=== PATIENT | female | born 2000 | race Native Hawaiian/Other Pacific Islander ===

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

== ENCOUNTER 2022-09-14 22:26 | Emergency (ER) | payer OTHER, SELFPAY ==
--- NOTE | 2022-09-14 | ECG_ITS ---
Test Reason : chest pain Blood Pressure : / mmHG Vent. Rate : 092 BPM Atrial Rate : 092 BPM P-R Int : 154 ms QRS Dur : 076 ms QT Int : 372 ms P-R-T Axes : 053 050 039 degrees QTc Int : 460 ms Normal sinus rhythm Normal ECG When compared with ECG of 05-FEB-2019 15:46, No significant change was found Referred By: Generic ED Physician Electronically Signed By:ELIECER GARCIA MD
--- NOTE | ~2022-09-14 | XR_ITS ---
EXAMINATION: XR CHEST CLINICAL INFORMATION: Shortness of breath. COMPARISON: Chest x-ray 02/05/2019 TECHNIQUE: 2 views of the chest were obtained. FINDINGS: No significant abnormality is noted involving the heart, lungs, mediastinum, bony thorax or soft tissues. XR/XR chest 2V IMPRESSION: Unremarkable examination.
[2022-09-14 22:39] VITALS: BP 102/62; PULSE 86; RESP 20; TEMP 36.6; O2SAT 99; BMI 26.4
[2022-09-14 22:54] LABS: Hematocrit 34.8 % (37.0-47.0); Hemoglobin 11.9 g/dl (12.0-16.0); Mean Corpuscular HGB Conc 34.2 g/dl (31.0-35.0); Mean Corpuscular Hemoglobin 30.7 pg (27.0-33.0); Mean Corpuscular Volume 89.7 fL (80.0-98.0); Mean Platelet Volume 11.3 fL (9.4-12.3); Platelet Count 238 X10*3/uL (160-400); Red Blood Count 3.88 X10*6/uL (4.20-5.50); Red Cell Distribution Width 12.5 % (11.0-16.0); White Blood Count 9.5 X10*3/uL (4.8-10.8)
[2022-09-14 23:12] LABS: Alanine Aminotransferase 23 U/L (0-31); Albumin Level 3.7 g/dL (3.5-5.0); Alkaline Phosphatase 83 U/L (39-117); Anion Gap 11 (12-20); Aspartate Amino Transferase 21 U/L (5-31); Bilirubin Total 0.2 mg/dL (0.0-1.0); Blood Urea Nitrogen 14 mg/dL (9-16); Calcium 9.2 mg/dL (8.4-10.2); Carbon Dioxide 24 mmol/L (22-29); Chloride 108 mmol/L (96-108); Creatinine Clr Calc Pharmacy 120.7; Estimated Glomerular Filt Rate > 60; Glucose Random 82 mg/dL (60-115); Potassium 4.1 mmol/L (3.3-5.1); Sodium 139 mmol/L (135-145); Total Protein 6.3 g/dL (6.5-8.0)
[2022-09-14 23:13] LABS: COVID-19 Test Negative (Negative); IDNOW Serial# 9DB6401D
[2022-09-14 23:15] LABS: IDNOW Serial# BCCEAD1C; Influenza A Negative (Negative); Influenza B2 Negative (Negative)
[2022-09-14 23:19] LABS: Troponin-I High Sensitivity < 2.7 ng/L (<3.5-17.0)
[2022-09-14 23:40] VITALS: BP 99/55; PULSE 70; RESP 17; TEMP 36.8; O2SAT 99
--- NOTE | 2022-09-14 23:40 | ED_ITS ---
HPI - General Adult General Chief complaint: General Medical Stated complaint: bodyaches,chest pain hx of lupus Time Seen by Provider: 09/14/22 23:39 Source: patient Mode of arrival: ambulatory Limitations: no limitations History of Present Illness HPI narrative: Patient is a 21 year old assigned female at with a history of lupus presenting to the emergency department today feeling generally unwell with body aches. Patient states that today she has felt generally unwell with body aches. Patient denies any current dizziness, lightheadedness, abdominal pain, nausea, vomiting, fever, chills, blurry vision, double vision, loss of vision, chest pain, difficulty breathing, shortness of breath, back pain, night sweats, pain with urination, increased urinary frequency, increased urinary urgency, blood in her urine or stool, syncope or a near syncopal episode, recent trauma or falls, bowel incontinence, bladder incontinence, bowel retention, bladder retention, or any other complaints at this time. Onset (ago): hour(s) Severity: mild Relieving factors: none Exacerbating factors: none Associated symptoms: denies other symptoms Treatments prior to arrival: none Related Data Previous Rx's Medication Instructions Recorded prednisone 20 mg tablet 20 mg PO DAILY 7 days #7 tabs 09/14/22 Allergies Allergy/AdvReac Type Severity Reaction Status Date / Time No Known Allergies Allergy Unverified 02/17/20 17:18 [No Known Allergies*] Review of Systems Constitutional: Constitutional: Reports no additional constitutional complaints, Reports body ache(s), Denies chills, Denies fever(s) and Denies night sweats Eyes: Eyes: Reports no additional eye complaints, Denies blurry vision, Denies change in vision, Denies diplopia, Denies eye discharge, Denies loss of vision and Denies eye pain ENT: Denies dizziness Cardiovascular: Cardiovascular: Reports no additional cardiovascular complaints, Denies chest pain, Denies lightheadedness, Denies Loss of Consciousness and Denies dyspnea Respiratory: Respiratory: Reports no additional respiratory complaints and Denies dyspnea Gastrointestinal: Gastrointestinal: Reports no additional gastrointestinal complaints, Denies abdominal pain, Denies melena, Denies hematochezia, Denies change in bowel habits and Denies change in stool character Genitourinary: Genitourinary: Denies hematuria, Denies urinary frequency, Denies dysuria, Denies urinary incontinence, Denies urinary hesitancy and Denies urinary urgency Musculoskeletal: Musculoskeletal: Reports no additional musculoskeletal complaints, Denies numbness and Denies tingling Neurologic: Denies dizziness, Denies loss of vision, Denies numbness and Denies tingling Psychiatric: Psychiatric: Reports no additional psychiatric complaints Endocrine: Endocrine: Reports no additional endocrine complaints Hematologic/Lymphatic: Hematologic/Lymphatic: Reports no additional hematologic/lymphatic complaints Allergic/Immunologic: Allergic/Immunologic: Reports no additional allergic/immunologic complaints PMFSH Past Medical History Attestation statement: The following information was validated with the patient. (all information was validated with the patient's mother) Source: old records reviewed, obtained from family (patient's mother) and nursing notes reviewed Social History Social History Advance Directives: No Advance Directives Information Provided: Yes Physical Exam ED Vital Signs: Vital Signs - 24 hr 09/14/22 22:39 09/14/22 23:40 Temperature 98 F 98.3 F Pulse Rate 86 70 Respiratory Rate 20 17 Blood Pressure 102/62 99/55 L Pulse Oximetry 99 99 Oxygen Delivery Method Room Air Room Air BMI result Body Mass Index 26.4 Const General: cooperative, no acute distress, alert and awake Nutritional Appearance: well nourished Orientation/consciousness: patient oriented x3 Limitations: no limitations HENMT Head: Yes normal to inspection and Yes atraumatic Ears: hearing grossly normal bilaterally and external ears normal General nose exam: Normal external nose present, no nasal discharge noted and no epistaxis Face and sinus: Yes normal facial exam, No abrasion and No laceration Mouth: Normal oral and palatal mucosa present, no drooling and no muffled voice Eyes General: appearance normal, both eyes and all related structures Periorbital: periorbital findings normal Eyelids: Yes eyelids normal Conjunctivae: conjunctivae normal Pupils: Equal, round and reactive pupils present EOM: EOMs intact bilaterally Neck Neck: Yes normal visual inspection, Yes full ROM and Yes no lymphadenopathy Chest Chest palpation & inspection: normal inspection of the chest Resp Effort & Inspection: normal respiratory effort and able to speak in complete sentences Auscultation: clear to auscultation bilaterally Cardio Rate: regular rate Rhythm: regular rhythm GI Inspection: Yes normal to inspection Neuro General: patient oriented x3 and moves all extremities Cranial nerves: Yes Equal, round and reactive pupils present Cognition (Neuro): normal cognition Motor exam (neuro): 5/5 motor strength present throughout Sensory Exam: Normal double simultaneous stimulation for sensation Coordination: [id number] test normal Extrem General: Yes normal to inspection, Yes full ROM and Yes capillary refill normal Psych Appearance: grossly normal Mental Status: mental status grossly normal Affect: normal affect Attitude: cooperative Thought process: Normal thought process present Thought content: Normal thought content present Insight: Good insight present (Psych) Medical Decision Making Medical Decision Making MDM Narrative: Patient is a 21 year old assigned female at with a history of lupus presenting to the emergency department today feeling generally unwell. Patient's physical exam was unremarkable. Patient's blood work was unremarkable. Patient's EKG was unremarkable. Patient's chest x-ray showed no acute process. I explained my physical exam findings as well as all test results to the patient and the patient's mother. I answered all questions asked by the patient and the patient's mother. I stressed the importance of the patient taking her medication as prescribed. I stressed the importance of the patient following up with her primary care provider. I stressed the importance of the patient returning to the emergency department immediately if her symptoms were to worsen or if she were to develop any dizziness, shortness of breath, difficulty breathing, chest pain, blurry vision, loss of vision, nausea, vomiting, abdominal pain, fever, chills, back pain, or any other complaints. Patient and the patient's mother verbalized agreement and understanding with this treatment plan and discharge. Differential Diagnosis Differential Diagnoses: The differential diagnosis associated with the presentation includes viral illness Lab Data [facility] Lab Attestation statement: I reviewed the patient's lab results. 09/14/22 22:47 09/14/22 22:46 Labs: Lab Results 09/14/22 09/14/22 09/14/22 Range/Units 22:46 22:46 22:46 WBC (4.8-10.8) X10*3/uL RBC (4.20-5.50) X10*6/uL Hgb (12.0-16.0) g/dl Hct (37.0-47.0) % MCV (80.0-98.0) fL MCH (27.0-33.0) pg MCHC (31.0-35.0) g/dl RDW (11.0-16.0) % Plt Count (160-400) X10*3/uL MPV (9.4-12.3) fL Absolute Nucleated RBC (0.0-0.012) X10*3/uL Nucleated RBC % (auto) (0.0-0.2) /100WBC Sodium 139 (135-145) mmol/L Potassium 4.1 (3.3-5.1) mmol/L Chloride 108 (96-108) mmol/L Carbon Dioxide 24 (22-29) mmol/L Anion Gap 11 L (12-20) BUN 14 (9-16) mg/dL Creatinine 0.64 (0.5-1.4) mg/dL Estim Creat Clear Calc 120.7 Estimated GFR > 60 Random Glucose 82 (60-115) mg/dL Calcium 9.2 D (8.4-10.2) mg/dL Total Bilirubin 0.2 (0.0-1.0) mg/dL AST 21 (5-31) U/L ALT 23 (0-31) U/L Alkaline Phosphatase 83 (39-117) U/L Troponin I High Sens (<3.5-17.0) ng/L Total Protein 6.3 L (6.5-8.0) g/dL Albumin 3.7 (3.5-5.0) g/dL COVID-19 (YVON) Negative (Negative) COVID-19 Clin Com See Note Influenza Type A (MELY) Negative (Negative) Influenza Type B (MELY) Negative (Negative) Influenza A & B Note See Note 09/14/22 09/14/22 Range/Units 22:46 22:47 WBC 9.5 (4.8-10.8) X10*3/uL RBC 3.88 L (4.20-5.50) X10*6/uL Hgb 11.9 L (12.0-16.0) g/dl Hct 34.8 L (37.0-47.0) % MCV 89.7 (80.0-98.0) fL MCH 30.7 (27.0-33.0) pg MCHC 34.2 (31.0-35.0) g/dl RDW 12.5 (11.0-16.0) % Plt Count 238 (160-400) X10*3/uL MPV 11.3 (9.4-12.3) fL Absolute Nucleated RBC 0.000 (0.0-0.012) X10*3/uL Nucleated RBC % (auto) 0.0 (0.0-0.2) /100WBC Sodium (135-145) mmol/L Potassium (3.3-5.1) mmol/L Chloride (96-108) mmol/L Carbon Dioxide (22-29) mmol/L Anion Gap (12-20) BUN (9-16) mg/dL Creatinine (0.5-1.4) mg/dL Estim Creat Clear Calc Estimated GFR Random Glucose (60-115) mg/dL Calcium (8.4-10.2) mg/dL Total Bilirubin (0.0-1.0) mg/dL AST (5-31) U/L ALT (0-31) U/L Alkaline Phosphatase (39-117) U/L Troponin I High Sens < 2.7 (<3.5-17.0) ng/L Total Protein (6.5-8.0) g/dL Albumin (3.5-5.0) g/dL COVID-19 (YVON) (Negative) COVID-19 Clin Com Influenza Type A (MELY) (Negative) Influenza Type B (MELY) (Negative) Influenza A & B Note Independent Interpretation I performed an independent interpretation of an: EKG Interpretation: Vent. Rate: 092 BPM ? ? Atrial Rate: 092 BPM P-R Int: 154 ms? QRS Dur: 076 ms QT Int: 372 ms ? ? ? P-R-T Axes: 053 050 039 degrees QTc Int: 460 ms ? Normal sinus rhythm Normal ECG When compared with ECG of 05-FEB-2019 15:46, No significant change was found DD/ 2240 Radiology Impression Radiologist Impression: My interpretation is in agreement with the radiologist's impression of this imaging study. EXAMINATION: XR CHEST CLINICAL INFORMATION: Shortness of breath. COMPARISON: Chest x-ray 02/05/2019 TECHNIQUE: 2 views of the chest were obtained. FINDINGS: No significant abnormality is noted involving the heart, lungs, mediastinum, bony thorax or soft tissues. XR/XR chest 2V IMPRESSION: Unremarkable examination. Dictated By: Dick Barnard MD Signed By: Electronically signed by Dick Barnard MD 09/14/22 [id number] Independent Historian Clinical information obtained from an independent historian. History obtained from or confirmed by: Parent (patient's mother) Discharge Plan Discharge Clinical Impression: Viral illness Patient Disposition: Home, Self-Care Instructions: Viral Syndrome (ED) Additional Instructions: Follow up with your primary care provider. Return to the emergency department immediately if your symptoms worsen or if you develop any dizziness, shortness of breath, difficulty breathing, chest pain, blurry vision, loss of vision, nausea, vomiting, abdominal pain, fever, chills, back pain, or any other complaints. Prescriptions: New prednisone 20 mg tablet 20 mg PO DAILY 7 Days Qty: 7 0RF Referrals: Kenia Maria MD [Primary Care Provider] - Stand Alone Forms: Work/School Release Interventions: ED Discharge Assessment Last Done: 09/15/22 00:06 Discharge Date/Time: 09/15/22 00:06 Print Language: Bulgarian
--- NOTE | 2022-09-14 23:43 | PC.NURSE ---
Pt aox4 resting at the bedside in no apparent distress. Family member at bedside. Breaths are even regular and unlabored. NSR on monitor with HR 70. Skin is wpd. Reports generalized body aches with chest pain. Hx of lupus. Pending CXR. Will continue to monitor.
--- NOTE | 2022-09-15 00:05 | PC.NURSE ---
Discharge instructions reviewed with pt. Pt verbalizes understanding. Ambulatory with steady gait at discharge. VSS.
== END 2022-09-15 00:06 | disposition home or self-care (01) ==
PROVIDERS: Emergency Provider Emergency Medicine Emergency Medical Services; PCP Specialist
DX: B34.9 Viral infection, unspecified (principal); M79.10 Myalgia, unspecified site; M32.9 Systemic lupus erythematosus, unspecified; Z20.822 Contact with and (suspected) exposure to COVID-19
CPT/HCPCS: 36415; 71046; 80053; 84484; 85027; 87502; 87635; 93005; 99283; 99284

== ENCOUNTER 2022-09-20 10:37 | Outpatient (REF) | payer OTHER, SELFPAY ==
--- NOTE | ~2022-09-20 | US_ITS ---
EXAMINATION: US SOFT TISSUE NECK CLINICAL INFORMATION: Tender left neck mass. COMPARISON: None available. TECHNIQUE: Ultrasound of the neck soft tissues is performed with high- frequency alex-scale imaging and color Doppler. FINDINGS: Greater than expected number of bilateral cervical nodes measuring borderline and mildly enlarged for example a 1.6 x 1.0 x 1.9 cm right level 2 cervical node measures borderline enlarged by short axis criteria and a 3.3 x 1.1 x 1.5 cm right level 2 cervical node measures mildly enlarged by short axis criteria. US/US soft tiss head and/or neck IMPRESSION: 1. Greater than expected number of bilateral cervical lymph nodes measuring borderline and mildly enlarged, of indeterminate etiology. Recommend correlation with any etiology for reactive lymphadenopathy and if present recommend short interval follow-up to assess resolution. If no clinical etiology for reactive lymphadenopathy these would be amenable to percutaneous guided sampling or further imaging with contrast-enhanced CT neck.
== END 2022-09-20 10:38 | disposition home or self-care (01) ==
LOC: HO.US 10:37
PROVIDERS: PCP Specialist; Visit Provider Specialist
DX: R22.1 Localized swelling, mass and lump, neck (principal)
CPT/HCPCS: 76536

== ENCOUNTER 2022-09-27 06:06 | Emergency (ER) | payer OTHER, SELFPAY ==
[2022-09-27 06:11] VITALS: BP 110/73; PULSE 98; RESP 18; TEMP 36.9; O2SAT 99; BMI 27.3
--- NOTE | 2022-09-27 07:15 | ED.ALLEREA ---
HPI - Allergic Reaction General Chief complaint: Allergic Reaction Stated complaint: rash all over Time Seen by Provider: 09/27/22 06:55 Source: patient Mode of arrival: ambulatory Limitations: no limitations History of Present Illness HPI narrative: This is a very pleasant 21 years old of female who has diagnosis of lupus on no meds now, patient presented with rash a possible allergic reaction she ate tacos last night. She denies any shortness of breath wheezing her voice is clear no swelling of the tongue complaint: allergic reaction Onset (ago): hour(s) (5) Exposure: food Symptoms: rash Severity: mild Treatment prior to arrival: none Previous Allergic Reaction History: none Related Data Previous Rx's Medication Instructions Recorded prednisone 20 mg tablet 20 mg PO DAILY 7 days #7 tabs 09/14/22 loratadine 10 mg tablet (Claritin) 10 mg PO DAILY #5 tabs 09/27/22 prednisone 10 mg tablet 50 mg PO DAILY 3 days #15 tabs 09/27/22 Allergies Allergy/AdvReac Type Severity Reaction Status Date / Time No Known Allergies Allergy Verified 09/27/22 06:15 [No Known Allergies*] Review of Systems Constitutional: Constitutional: Reports no additional constitutional complaints Eyes: Eyes: Reports no additional eye complaints ENT: Reports system reviewed and no additional complaints, except as documented Cardiovascular: Cardiovascular: Reports no additional cardiovascular complaints Respiratory: Respiratory: Reports no additional respiratory complaints [facility] Past Medical History [facility] Narrative: Lupus Social History Social History Advance Directives: No Advance Directives Information Provided: Yes Physical Exam ED Vital Signs: Vital Signs - 24 hr 09/27/22 06:11 Temperature 98.5 F Pulse Rate 98 Respiratory Rate 18 Blood Pressure 110/73 Pulse Oximetry 99 Oxygen Delivery Method Room Air BMI result Body Mass Index 27.3 Const Other: She looks well she is not toxic-appearing, no distress General: cooperative, comfortable and no acute distress Nutritional Appearance: average body habitus Orientation/consciousness: patient oriented x3 Limitations: no limitations HENMT Head: Yes normal to inspection Face and sinus: Yes normal facial exam Mouth: Normal oral and palatal mucosa present, lip normal and tongue normal Throat: Yes posterior oropharynx normal Neck Neck: Yes normal visual inspection and Yes full ROM Chest Chest palpation & inspection: normal inspection of the chest Resp Effort & Inspection: normal respiratory effort Auscultation: clear to auscultation bilaterally Cardio Jugular venous distension: no JVD Rate: regular rate Rhythm: regular rhythm GI Inspection: Yes normal to inspection Palpation (GI): Soft to palpation, not firm, nontender and no guarding Auscultation: normal bowel sounds Skin General skin exam: elasticity normal, turgor normal and other (Patient has a macular rash very fine in the chest upper extremity ) Rashes: rashes noted (Very fine macular rash no hives, no target lesion) Wounds: no wounds Neuro General: patient oriented x3 Cranial nerves: Yes CN's II-XII intact bilaterally Course Reevaluation(s) Reevaluation #1: Patient presented with a possible allergic reaction she is stable hemodynamically lungs are clear no wheezing vital signs stable will treat with antihistamine prednisone. The patient and the mother very comfortable with the plan Medications Administered Discontinued Medications Generic Name Dose Route Start Last Admin Trade Name Freq PRN Reason Stop Dose Admin Loratadine 10 mg 09/27/22 07:14 09/27/22 07:18 Loratadine 10 Mg Tablet PO 09/27/22 07:15 10 mg ONCE ONE Administration Prednisone 60 mg 09/27/22 07:14 09/27/22 07:18 Prednisone 20 Mg Tablet PO 09/27/22 07:15 60 mg ONCE ONE Administration Medical Decision Making Medical Decision Making [facility] Narrative: Patient presented with a rash Differential Diagnosis Differential Diagnoses: The differential diagnosis associated with the presentation includes Differential diagnosis disease allergic reaction/viral rash Admission/Observation Consideration of admission/observation: Escalation of care including admission/observation considered Discharge Plan Discharge Clinical Impression: Allergic reaction, Rash Patient Disposition: Home, Self-Care Instructions: Acute Rash (ED) Additional Instructions: Please follow-up with your primary care physician, return to the emergency department if you worse, if you have shortness of breath any concern Prescriptions: New loratadine [Claritin] 10 mg tablet 10 mg PO DAILY Qty: 5 0RF prednisone 10 mg tablet 50 mg PO DAILY 3 Days Qty: 15 0RF No Action prednisone 20 mg tablet 20 mg PO DAILY 7 Days Qty: 7 0RF Stand Alone Forms: Work/School Release Interventions: ED Discharge Assessment Last Done: 09/27/22 07:26 Discharge Date/Time: 09/27/22 07:29
[2022-09-27] MEDS: Loratadine 10 MG TABLET PO (07:18)
[2022-09-27] MEDS: predniSONE 20 MG TABLET 60 MG PO (07:18)
--- NOTE | 2022-09-27 07:27 | PC.NURSE ---
there are several small reportedly itchy bumps all over her body, very small, spread out and pt denies any airway involvement
== END 2022-09-27 07:29 | disposition home or self-care (01) ==
PROVIDERS: Emergency Provider Emergency Medicine; PCP Specialist
DX: R21 Rash and other nonspecific skin eruption (principal); T78.40XA Allergy, unspecified, initial encounter; X58.XXXA Exposure to other specified factors, initial encounter; Z79.899 Other long term (current) drug therapy
CPT/HCPCS: 99282; 99283

== ENCOUNTER 2022-09-28 12:12 | Emergency (ER) | payer OTHER, SELFPAY ==
[2022-09-28 12:18] VITALS: BP 118/86; PULSE 102; RESP 20; TEMP 37.3; O2SAT 100; BMI 27.3
--- NOTE | 2022-09-28 12:23 | ED.ALLEREA ---
HPI - Allergic Reaction General Chief complaint: Skin/Abscess/Foreign Body <ABIDA Alvarez Last Filed: 09/28/22 14:02> Stated complaint: facial rash <ABIDA Alvarez Last Filed: 09/28/22 14:02> Time Seen by Provider: 09/28/22 12:59 <ABIDA Alvarez Last Filed: 09/28/22 14:02> Source: patient <ABIDA Knapp Last Filed: 09/28/22 14:37> Mode of arrival: ambulatory <ABIDA Knapp Last Filed: 09/28/22 14:37> Limitations: no limitations <ABIDA Knapp Last Filed: 09/28/22 14:37> Related Data Home medications: Previous Rx's Medication Instructions Recorded prednisone 20 mg tablet 20 mg PO DAILY 7 days #7 tabs 09/14/22 loratadine 10 mg tablet (Claritin) 10 mg PO DAILY #5 tabs 09/27/22 prednisone 10 mg tablet 50 mg PO DAILY 3 days #15 tabs 09/27/22 diphenhydramine HCl 25 mg capsule 25 mg PO TID PRN allergic reaction 09/28/22 (Benadryl) #20 caps epinephrine 0.3 mg/0.3 mL 0.3 mg (0.3 mL) IM Q4H PRN 09/28/22 injection, auto-injector (EpiPen anaphylaxis #2 ea 2-Tello) <ABIDA Alvarez Last Filed: 09/28/22 14:02> Allergies/adverse reactions: Allergies Allergy/AdvReac Type Severity Reaction Status Date / Time No Known Allergies Allergy Verified 09/27/22 06:15 [No Known Allergies*] <ABIDA Alvarez Last Filed: 09/28/22 14:02> Review of Systems Review of Systems: Constitutional : No Weight loss, No Fever, No Chills, No Fatigue, No Malaise ENT/Mouth : No sore throat, No Rhinorrhea Eyes: No Eye Pain, No Swelling, No Redness Cardiovascular : No Chest Pain, No SOB, No Dyspnea on Exertion, No Orthopnea, No Edema, No Palpitations Respiratory : No Cough, No Sputum, No Wheezing Gastrointestinal : No Nausea, No Vomiting, No Diarrhea, No Constipation, No abdominal Pain, No Hematochezia, No Melena Genitourinary : No Dysuria, No Urinary Frequency, No Hematuria, Musculoskeletal : No joint pain, No Myalgias, No Joint Swelling Skin : No Skin Lesions, No rash Neuro : No Weakness, No Numbness, No Dizziness, No Headache Psych : No Anxiety/Panic, No Depression All other systems reviewed and are negative <ABIDA Knapp - Last Filed: 09/28/22 14:37> Yes all other systems are reviewed and are negative <ABIDA Knapp - Last Filed: 09/28/22 14:37> FORMERLY [facility] Past Medical History Attestation statement: The following information was validated with the patient. <ABIDA Knapp - Last Filed: 09/28/22 14:37> Source: old records reviewed and nursing notes reviewed <ABIDA Knapp - Last Filed: 09/28/22 14:37> Social History Social History: Social History Advance Directives: No Advance Directives Information Provided: No <ABIDA Alvarez - Last Filed: 09/28/22 14:02> Physical Exam ED Vital Signs: Vital Signs - 24 hr 09/28/22 12:18 Temperature 99.1 F Pulse Rate 102 H Respiratory Rate 20 Blood Pressure 118/86 Pulse Oximetry 100 Oxygen Delivery Method Room Air BMI result Body Mass Index 27.3 <ABIDA Alvarez - Last Filed: 09/28/22 14:02> Vital Signs - 24 hr 09/28/22 12:18 Temperature 99.1 F Pulse Rate 102 H Respiratory Rate 20 Blood Pressure 118/86 Pulse Oximetry 100 Oxygen Delivery Method Room Air BMI result Body Mass Index 27.3 vss <ABIDA Knapp - Last Filed: 09/28/22 14:37> Appearance: Alert.? Oriented X3.? No acute distress.? Head: Normocephalic, atraumatic, no step-offs or deformities Eyes: Pupils equal, round and reactive to light.? ENT: Pharynx normal.? Airway without edema, no edema to uvula, lips, hard or soft palate, tongue. Patient speaking in full sentences controlling secretions well Neck: Normal inspection.? Neck supple.? CVS: Normal heart rate and rhythm.? Pulses normal.? Respiratory: No respiratory distress.? Breath sounds normal.? Abdomen: Soft and nontender.? Skin: Skin warm and dry.? Normal skin color.? Normal skin turgor.?+ diffuse rash to body including palms of hands, maculopapular and itchy Extremities: No lower extremity edema.? No calf ttp. 5/5 strength to bilateral upper and lower extremities Back: No midline tenderness, no C-spine tenderness, full range of motion, no CVA tenderness bilaterally Neuro: Oriented X 3.? No motor deficit.? No sensory deficit. CN 2-12 intact <ABIDA Knapp - Last Filed: 09/28/22 14:37> Course Course Course Narrative: CHARITY - 21 y/o F, hx of recent diagnosis of lupus, who presents to the ER for evaluation of diffuse hives throughout her entire abdomen. She was seen here yesterday for the symptoms, it was given loratadine and prednisone. Patient reports she woke up this morning and her rash was worse, did not take her prednisone this morning. She reports that the rash is very itchy. On exam, patient has diffuse hives throughout her entire body, has 3 lesions on left palm. Denies any difficulty swallowing or breathing. VSS. Recent ingestion of tacos from a [employer] truck, no other new exposures. Patient is stable to return to waiting room until treatment room with comes available. Plan: Labs, IV solu-medrol, benadryl, and pepcid. <ABIDA Alvarez - Last Filed: 09/28/22 14:02> Reevaluation(s) Reevaluation #1: CBC within normal limits. Chemistry unremarkable. Patient's syphilis, Lyme and mono test pending. She will be called only if results are positive. Patient tells me she feels much better, her rash is improving. Patient's airway remains patent, speaking in full sentences controlling secretions well saturating 100% on room air. Patient tells me she is no longer itchy. Will discharge home with Benadryl, and EpiPen, discussed proper use of an EpiPen with patient and advised her to follow-up with Allergy and immunology. I also advised her to follow-up with however cares for her lupus. Educated patient on diagnosis and treatment plan, answered all question, patient verbalizes understanding. At this time patient will be discharged home, advised to return with new or worsening symptoms. Educated on worrisome signs and symptoms and when to return. At this time I feel comfortable discharge home. <ABIDA Knapp - Last Filed: 09/28/22 14:37> Time: 14:36 <ABIDA Knapp - Last Filed: 09/28/22 14:37> Medications Administered Discontinued Medications Generic Name Dose Route Start Last Admin Trade Name Freq PRN Reason Stop Dose Admin Diphenhydramine HCl 50 mg 09/28/22 12:20 09/28/22 13:50 Diphenhydramine Hcl 50 Mg/Ml Vial IVPUSH 09/28/22 12:21 50 mg ONCE ONE Administration Famotidine 20 mg 09/28/22 12:20 09/28/22 13:43 Famotidine/Pf 20 Mg/2 Ml Vial IVPUSH 09/28/22 12:21 20 mg ONCE ONE Administration Sodium Chloride 1,000 mls @ 999 mls/hr 09/28/22 12:21 09/28/22 13:41 Ns IVCONT 09/28/22 13:21 999 mls/hr .Q1H1M ONE Administration Methylprednisolone Sodium Succinate 125 mg 09/28/22 12:20 09/28/22 13:49 Methylprednisolone Sod Succ 125 Mg/2 Ml Vial IVPUSH 09/28/22 12:21 125 mg ONCE ONE Administration <ABIDA Alvarez - Last Filed: 09/28/22 14:02> Medications Administered Discontinued Medications Generic Name Dose Route Start Last Admin Trade Name Freq PRN Reason Stop Dose Admin Diphenhydramine HCl 50 mg 09/28/22 12:20 09/28/22 13:50 Diphenhydramine Hcl 50 Mg/Ml Vial IVPUSH 09/28/22 12:21 50 mg ONCE ONE Administration Famotidine 20 mg 09/28/22 12:20 09/28/22 13:43 Famotidine/Pf 20 Mg/2 Ml Vial IVPUSH 09/28/22 12:21 20 mg ONCE ONE Administration Sodium Chloride 1,000 mls @ 999 mls/hr 09/28/22 12:21 09/28/22 13:41 Ns IVCONT 09/28/22 13:21 999 mls/hr .Q1H1M ONE Administration Methylprednisolone Sodium Succinate 125 mg 09/28/22 12:20 09/28/22 13:49 Methylprednisolone Sod Succ 125 Mg/2 Ml Vial IVPUSH 09/28/22 12:21 125 mg ONCE ONE Administration <ABIDA Knapp - Last Filed: 09/28/22 14:37> Medical Decision Making Medical Decision Making [facility] Narrative: 1330 21-year-old female presents with rash throughout body worsening over the past 2 days, was seen here yesterday given oral prednisone however has not helped. Physical exam significant for maculopapular rash throughout body including palms of hands, Airway without edema, no edema to uvula, lips, hard or soft palate, tongue. Patient speaking in full sentences controlling secretions well. Likely allergic reaction. Other differentials include lupus, syphilis, Lyme, contact dermatitis. No signs of anaphylaxis or airway compromise. Plan labs, IV with Solu-Medrol, Benadryl and Pepcid. <ABIDA Knapp - Last Filed: 09/28/22 14:37> Differential Diagnosis Differential Diagnoses: The differential diagnosis associated with the presentation includes <ABIDA Knapp - Last Filed: 09/28/22 14:37> Likely allergic reaction. Other differentials include lupus, syphilis, Lyme, contact dermatitis. No signs of anaphylaxis or airway compromise. <ABIDA Knapp Last Filed: 09/28/22 14:37> Admission/Observation Consideration of admission/observation: Escalation of care including admission/observation considered <ABIDA Knapp - Last Filed: 09/28/22 14:37> Lab Data [facility] Lab Attestation statement: I reviewed the patient's lab results. <ABIDA Knapp Last Filed: 09/28/22 14:37> Result Diagrams: 09/28/22 12:29 09/28/22 12:29 <ABIDA Alvarez Last Filed: 09/28/22 14:02> Labs: Lab Results 09/28/22 09/28/22 Range/Units 12:29 12:29 WBC 10.0 (4.8-10.8) X10*3/uL RBC 4.37 (4.20-5.50) X10*6/uL Hgb 13.5 (12.0-16.0) g/dl Hct 39.0 (37.0-47.0) % MCV 89.2 (80.0-98.0) fL MCH 30.9 (27.0-33.0) pg MCHC 34.6 (31.0-35.0) g/dl RDW 12.3 (11.0-16.0) % Plt Count 275 (160-400) X10*3/uL MPV 10.9 (9.4-12.3) fL Immature Gran % (Auto) 0.5 H (0.0-0.4) % Neut % (Auto) 55.0 (45-73) % Lymph % (Auto) 40.2 H (20-40) % [place] % (Auto) 3.4 (2-11) % Eos % (Auto) 0.7 (0-4) % Baso % (Auto) 0.2 (0-2) % Lymph # (Auto) 4.0 (1.2-4.9) X10*3/uL [place] # (Auto) 0.3 (0.1-1.2) X10*3/uL Eos # (Auto) 0.1 (0.0-0.4) X10*3/uL Baso # (Auto) 0.0 (0.0-0.2) X10*3/uL Abs Immat Gran (auto) 0.05 H (0.00-0.03) X10*3/uL Absolute Neuts (auto) 5.5 (2.0-8.3) x10*3/uL Absolute Nucleated RBC 0.000 (0.0-0.012) X10*3/uL Nucleated RBC % (auto) 0.0 (0.0-0.2) /100WBC Sodium 142 (135-145) mmol/L Potassium 4.1 (3.3-5.1) mmol/L Chloride 110 H (96-108) mmol/L Carbon Dioxide 25 (22-29) mmol/L Anion Gap 11 L (12-20) BUN 13 (9-16) mg/dL Creatinine 0.73 (0.5-1.4) mg/dL Estim Creat Clear Calc 103.1 Estimated GFR > 60 Random Glucose 86 (60-115) mg/dL Calcium 9.5 (8.4-10.2) mg/dL Magnesium 1.7 (1.6-2.6) mg/dL Total Bilirubin 0.5 (0.0-1.0) mg/dL Direct Bilirubin 0.2 (0.0-0.5) mg/dL AST 17 (5-31) U/L ALT 24 (0-31) U/L Alkaline Phosphatase 87 (39-117) U/L Total Protein 7.2 (6.5-8.0) g/dL Albumin 4.1 (3.5-5.0) g/dL Lipase 22 (8-78) U/L <ABIDA Alvarez - Last Filed: 09/28/22 14:02> Lab Results 09/28/22 09/28/22 Range/Units 12:29 12:29 WBC 10.0 (4.8-10.8) X10*3/uL RBC 4.37 (4.20-5.50) X10*6/uL Hgb 13.5 (12.0-16.0) g/dl Hct 39.0 (37.0-47.0) % MCV 89.2 (80.0-98.0) fL MCH 30.9 (27.0-33.0) pg MCHC 34.6 (31.0-35.0) g/dl RDW 12.3 (11.0-16.0) % Plt Count 275 (160-400) X10*3/uL MPV 10.9 (9.4-12.3) fL Immature Gran % (Auto) 0.5 H (0.0-0.4) % Neut % (Auto) 55.0 (45-73) % Lymph % (Auto) 40.2 H (20-40) % [place] % (Auto) 3.4 (2-11) % Eos % (Auto) 0.7 (0-4) % Baso % (Auto) 0.2 (0-2) % Lymph # (Auto) 4.0 (1.2-4.9) X10*3/uL [place] # (Auto) 0.3 (0.1-1.2) X10*3/uL Eos # (Auto) 0.1 (0.0-0.4) X10*3/uL Baso # (Auto) 0.0 (0.0-0.2) X10*3/uL Abs Immat Gran (auto) 0.05 H (0.00-0.03) X10*3/uL Absolute Neuts (auto) 5.5 (2.0-8.3) x10*3/uL Absolute Nucleated RBC 0.000 (0.0-0.012) X10*3/uL Nucleated RBC % (auto) 0.0 (0.0-0.2) /100WBC Sodium 142 (135-145) mmol/L Potassium 4.1 (3.3-5.1) mmol/L Chloride 110 H (96-108) mmol/L Carbon Dioxide 25 (22-29) mmol/L Anion Gap 11 L (12-20) BUN 13 (9-16) mg/dL Creatinine 0.73 (0.5-1.4) mg/dL Estim Creat Clear Calc 103.1 Estimated GFR > 60 Random Glucose 86 (60-115) mg/dL Calcium 9.5 (8.4-10.2) mg/dL Magnesium 1.7 (1.6-2.6) mg/dL Total Bilirubin 0.5 (0.0-1.0) mg/dL Direct Bilirubin 0.2 (0.0-0.5) mg/dL AST 17 (5-31) U/L ALT 24 (0-31) U/L Alkaline Phosphatase 87 (39-117) U/L Total Protein 7.2 (6.5-8.0) g/dL Albumin 4.1 (3.5-5.0) g/dL Lipase 22 (8-78) U/L <ABIDA Knapp - Last Filed: 09/28/22 14:37> Core Measures AMI core measures followed: Yes <ABIDA Knapp Last Filed: 09/28/22 14:37> Measure exclusions: not indicated <ABIDA Knapp Last Filed: 09/28/22 14:37> Critical Care Time Critical Care Time Critical Care Time: No <ABIDA Knapp Last Filed: 09/28/22 14:37> Discharge Plan Discharge Clinical Impression: Allergic reaction, Urticaria <ABIDA Alvarez Last Filed: 09/28/22 14:02> Patient Disposition: Home, Self-Care <ABIDA Alvarez Last Filed: 09/28/22 14:02> Instructions: Urticaria (ED), Allergy Testing (ED) <ABIDA Alvarez Last Filed: 09/28/22 14:02> Additional Instructions: Take your medications as prescribed. If you were prescribed antibiotics today, it is important that you take your medication to their entirety, do not skip any doses, do not finish them early. Follow-up with your primary care provider this week. Return to the emergency department with new or worsening symptoms. Such as fevers, chills, chest pain, shortness of breath, nausea, vomiting, dizziness, headache, vision changes, lethargy In case of emergency call 911 An EpiPen has been sent to your pharmacy, please use this if you feel short of breath or if your throat was closing, difficulty breathing or swallowing. Or any other signs of anaphylaxis. If you use an EpiPen you should report to the emergency department immediately or call 911. Continue taking prednisone. Take benadryl for mild- moderate reactions. Epipen for severe. Follow up with MELISSA: [facility] [address] [place], [place] [address] <ABIDA Alvarez Last Filed: 09/28/22 14:02> Prescriptions: New diphenhydramine HCl [Benadryl] 25 mg capsule 25 mg PO TID PRN (Reason: allergic reaction) Qty: 20 0RF epinephrine [EpiPen 2-Tello] 0.3 mg/0.3 mL auto-injector 0.3 mg IM Q4H PRN (Reason: anaphylaxis) Qty: 2 0RF No Action prednisone 20 mg tablet 20 mg PO DAILY 7 Days Qty: 7 0RF loratadine [Claritin] 10 mg tablet 10 mg PO DAILY Qty: 5 0RF prednisone 10 mg tablet 50 mg PO DAILY 3 Days Qty: 15 0RF <ABIDA Alvarez Last Filed: 09/28/22 14:02> Referrals: [facility] [Provider Group] - 2 days Kenia Maria MD [Primary Care Provider] - 2 days <ABIDA Alvarez - Last Filed: 09/28/22 14:02> Stand Alone Forms: Work/School Release <ABIDA Alvarez - Last Filed: 09/28/22 14:02>
[2022-09-28 12:34] LABS: MANUAL DIFF FLAG NO
[2022-09-28 12:38] LABS: Basophils Percent Auto 0.2 % (0-2); Eosinophils Absolute Auto 0.1 X10*3/uL (0.0-0.4); Eosinophils Percent Auto 0.7 % (0-4); Hemoglobin 13.5 g/dl (12.0-16.0); Imm Gran Abs Auto 0.05 X10*3/uL (0.00-0.03); Imm Gran Pct Auto 0.5 % (0.0-0.4); Lymphocytes Percent Auto 40.2 % (20-40); Mean Corpuscular HGB Conc 34.6 g/dl (31.0-35.0); Mean Corpuscular Hemoglobin 30.9 pg (27.0-33.0); Mean Corpuscular Volume 89.2 fL (80.0-98.0); Mean Platelet Volume 10.9 fL (9.4-12.3); Monocytes Absolute Auto 0.3 X10*3/uL (0.1-1.2); Monocytes Percent Auto 3.4 % (2-11); Neutrophils Absolute Auto 5.5 x10*3/uL (2.0-8.3); Platelet Count 275 X10*3/uL (160-400); Red Blood Count 4.37 X10*6/uL (4.20-5.50); Red Cell Distribution Width 12.3 % (11.0-16.0)
[2022-09-28 12:57] LABS: Alanine Aminotransferase 24 U/L (0-31); Albumin Level 4.1 g/dL (3.5-5.0); Alkaline Phosphatase 87 U/L (39-117); Anion Gap 11 (12-20); Aspartate Amino Transferase 17 U/L (5-31); Bilirubin Direct 0.2 mg/dL (0.0-0.5); Bilirubin Total 0.5 mg/dL (0.0-1.0); Blood Urea Nitrogen 13 mg/dL (9-16); Calcium 9.5 mg/dL (8.4-10.2); Carbon Dioxide 25 mmol/L (22-29); Chloride 110 mmol/L (96-108); Creatinine Clr Calc Pharmacy 103.1; Estimated Glomerular Filt Rate > 60; Glucose Random 86 mg/dL (60-115); Lipase 22 U/L (8-78); Magnesium 1.7 mg/dL (1.6-2.6); Potassium 4.1 mmol/L (3.3-5.1); Sodium 142 mmol/L (135-145); Total Protein 7.2 g/dL (6.5-8.0)
[2022-09-28] MEDS: 0.9 % Sodium Chloride 1,000 ML 999 ML IVCONT (13:41)
[2022-09-28] MEDS: Famotidine/PF 20 MG/2 ML VIAL IVPUSH (13:43)
[2022-09-28] MEDS: methylPREDNISolone Sod Succ 125 MG/2 ML VIAL IVPUSH (13:49)
[2022-09-28] MEDS: diphenhydrAMINE HCL 50 MG/ML VIAL IVPUSH (13:50)
--- NOTE | 2022-09-28 13:59 | MHC.EDTECH ---
Labs collected and sent
[2022-09-28 14:48] LABS: Monotest Negative (Negative)
[2022-09-28 15:02] VITALS: BP 112/80; PULSE 74; RESP 16; O2SAT 98
[2022-09-30 09:09] LABS: Syphilis Screen Nonreactive (Nonreactive)
[2022-09-30 21:04] LABS: Lyme Abs Screen <0.90 index
== END 2022-09-28 15:13 | disposition home or self-care (01) ==
PROVIDERS: Physician Assistant; Physician Assistant Medical; Emergency Provider Emergency Medicine; PCP Specialist
DX: L50.9 Urticaria, unspecified (principal); T78.40XA Allergy, unspecified, initial encounter; X58.XXXA Exposure to other specified factors, initial encounter
CPT/HCPCS: 36415; 80048; 80076; 83690; 83735; 85025; 86308; 86617; 86618; 86780; 96374; 96375; 99284; J1200; J2930

== ENCOUNTER 2023-09-05 10:11 | Emergency (ER) | payer OTHER, SELFPAY ==
--- NOTE | 2023-09-05 11:19 | ED_ITS ---
HPI - General Adult General Chief complaint: General Medical Stated complaint: Fever Diarrhea Vomiting Lupus Patient Time Seen by Provider: 09/05/23 13:37 Source: patient and family (patient's mother) Mode of arrival: ambulatory Limitations: no limitations History of Present Illness HPI narrative: Patient is a 22 year old assigned female at with a history of lupus presenting to the emergency department today with nausea, vomiting, headache, cough, and body aches. Patient states that over the last 2 weeks she has had nausea, vomiting, headache, cough, and body aches. Patient denies any dizziness, lightheadedness, abdominal pain, fever, chills, blurry vision, double vision, loss of vision, chest pain, difficulty breathing, shortness of breath, back pain, night sweats, pain with urination, increased urinary frequency, increased urinary urgency, blood in her urine or stool, syncope or a near syncopal episode, recent trauma or falls, bowel incontinence, bladder incontinence, bowel retention, bladder retention, or any other complaints at this time. Onset (ago): week(s) (2) Relieving factors: none Exacerbating factors: none Associated symptoms: cough, headaches and nausea/vomiting Treatments prior to arrival: none Related Data Previous Rx's ?Medication ?Instructions ?Recorded prednisone 20 mg tablet 20 mg PO DAILY 7 days #7 tabs 09/14/22 loratadine 10 mg tablet (Claritin) 10 mg PO DAILY #5 tabs 09/27/22 prednisone 10 mg tablet 50 mg (5 x 10 mg) PO DAILY 3 days 09/27/22 #15 tabs diphenhydramine HCl 25 mg capsule 25 mg PO TID PRN allergic reaction 09/28/22 (Benadryl) #20 caps epinephrine 0.3 mg/0.3 mL 0.3 mg (0.3 mL) IM Q4H PRN 09/28/22 injection, auto-injector (EpiPen anaphylaxis #2 ea 2-Tello) Allergies Allergy/AdvReac Type Severity Reaction Status Date / Time No Known Allergies Allergy Verified 09/05/23 11:27 [No Known Allergies*] Review of Systems Constitutional: Constitutional: Reports no additional constitutional complaints, Reports body ache(s), Denies chills, Denies fever(s), Reports headache(s) and Denies night sweats Eyes: Eyes: Reports no additional eye complaints, Denies blurry vision, Denies change in vision, Denies diplopia, Denies eye discharge, Denies loss of vision and Denies eye pain ENT: Denies dizziness and Reports headache(s) Cardiovascular: Cardiovascular: Reports no additional cardiovascular complaints, Denies chest pain, Denies lightheadedness, Denies Loss of Consciousness and Denies dyspnea Respiratory: Respiratory: Reports no additional respiratory complaints, Reports cough and Denies dyspnea Gastrointestinal: Gastrointestinal: Reports no additional gastrointestinal complaints, Denies abdominal pain, Denies melena, Denies hematochezia, Denies change in bowel habits, Denies change in stool character, Reports nausea and Reports vomiting Genitourinary: Genitourinary: Denies hematuria, Denies urinary frequency, Denies dysuria, Denies urinary incontinence, Denies urinary hesitancy and Denies urinary urgency Musculoskeletal: Musculoskeletal: Reports no additional musculoskeletal complaints, Denies numbness and Denies tingling Neurologic: Denies dizziness, Reports headache(s), Denies loss of vision, Denies numbness and Denies tingling Psychiatric: Psychiatric: Reports no additional psychiatric complaints Endocrine: Endocrine: Reports no additional endocrine complaints Hematologic/Lymphatic: Hematologic/Lymphatic: Reports no additional hematologic/lymphatic complaints Allergic/Immunologic: Allergic/Immunologic: Reports no additional allergic/immunologic complaints PMFSH Past Medical History Attestation statement: The following information was validated with the patient. (patient's mother validated all information provided by the patient) Source: old records reviewed, obtained from family (patient's mother provided additional history and confirmed the history provided by the patient) and nursing notes reviewed Social History Social History Alcohol intake: never Substance Use Type: Marijuana Advance Directives: No Advance Directives Information Provided: No Physical Exam ED Vital Signs: Vital Signs - 24 hr 09/05/23 11:26 Temperature 98.3 F Pulse Rate 97 Respiratory Rate 16 Blood Pressure 133/102 H Pulse Oximetry 98 Oxygen Delivery Method Room Air BMI result Body Mass Index 25.7 Const General: cooperative, no acute distress, alert and awake Nutritional Appearance: well nourished Orientation/consciousness: patient oriented x3 Limitations: no limitations HENMT Head: Yes normal to inspection and Yes atraumatic Ears: hearing grossly normal bilaterally and external ears normal General nose exam: Normal external nose present, no nasal discharge noted and no epistaxis Face and sinus: Yes normal facial exam, No abrasion and No laceration Mouth: Normal oral and palatal mucosa present, no drooling and no muffled voice Eyes General: appearance normal, both eyes and all related structures Periorbital: periorbital findings normal Eyelids: Yes eyelids normal Conjunctivae: conjunctivae normal Pupils: Equal, round and reactive pupils present EOM: EOMs intact bilaterally Neck Neck: Yes normal visual inspection, Yes full ROM and Yes no lymphadenopathy Chest Chest palpation & inspection: normal inspection of the chest Resp Effort & Inspection: normal respiratory effort and able to speak in complete sentences GI Inspection: Yes normal to inspection Neuro General: patient oriented x3 and moves all extremities Cranial nerves: Yes Equal, round and reactive pupils present Cognition (Neuro): normal cognition Motor exam (neuro): 5/5 motor strength present throughout Sensory Exam: Normal double simultaneous stimulation for sensation Coordination: [id number] test normal Extrem General: Yes normal to inspection, Yes full ROM and Yes capillary refill normal Psych Appearance: grossly normal Mental Status: mental status grossly normal Affect: normal affect Attitude: cooperative Thought process: Normal thought process present Thought content: Normal thought content present Insight: Good insight present (Psych) Course Course Course Narrative: RME performed by Lcuina Rodriguez PA-C. Patient is a 22 year old assigned f emale at presenting to the emergency department with nausea, vomiting, and headache. Hx of lupus. Detailed physical exam and review of systems are deferred to the circular knitter helper. Labs and swabs ordered. Patient placed back in the waiting room pending room availability and results. Medical Decision Making Medical Decision Making MDM Narrative: Patient is a 22 year old assigned female at with a history of lupus presenting to the emergency department today with nausea, vomiting, headache, body aches, and cough. Patient's limited physical exam performed in triage was unremarkable. Patient's blood work was ordered but never completed due to the patient leaving before it could be collected. Patient left the department without completing treatment. Patient left the department before myself or any of the other emergency department clinicians could explain to or review with the patient; physical exam findings, need or lack there of for additional testing, need or lack there of to perform a procedure, need or lack there of for hospital admission / transfer, need or lack there of for prescription medication, treatment options, or a treatment plan. Differential Diagnosis Differential Diagnoses: The differential diagnosis associated with the presentation includes Nausea Vomiting Viral illness Admission/Observation Consideration of admission/observation: Escalation of care including admission/observation considered Patient would have been admitted to the hospital had she completed her work up and it had any findings where hospital admission was appropriate, her clinical presentation warranted hospital admission, had myself or any other emergency nursing department chairperson had the ability to discuss need or lack there of for hospi sandi admission, and the patient hadn't left the department without completing treatment. Lab Data MDM Lab Attestation statement: I reviewed the patient's lab results. My interpretation of these studies and their corresponding values is that they are grossly normal. Labs: Lab Results 09/05/23 Range/Units 11:25 Influenza Type A (PCR) NEGATIVE (Negative) Influenza Type B (PCR) NEGATIVE (Negative) RSV RNA Qual (PCR) NEGATIVE (Negative) SARS-CoV-2 RNA (RT-PCR) NEGATIVE (Negative) S. pyogenes GrpA MELY Negative (Negative) Independent Historian Clinical information obtained from an independent historian. History obtained from or confirmed by: Parent (patient's mother provided additional history and confirmed the history provided by the patient.) Discharge Plan Discharge Clinical Impression: Nausea & vomiting Patient Disposition: Left W/O Completing Treatment Prescriptions: No Action prednisone 20 mg tablet 20 mg PO DAILY 7 Days Qty: 7 0RF loratadine [Claritin] 10 mg tablet 10 mg PO DAILY Qty: 5 0RF prednisone 10 mg tablet 50 mg PO DAILY 3 Days Qty: 15 0RF diphenhydramine HCl [Benadryl] 25 mg capsule 25 mg PO TID PRN (Reason: allergic reaction) Qty: 20 0RF epinephrine [EpiPen 2-Tello] 0.3 mg/0.3 mL auto-injector 0.3 mg IM Q4H PRN (Reason: anaphylaxis) Qty: 2 0RF Discharge Date/Time: 09/05/23 14:31
[2023-09-05 11:26] VITALS: BP 133/102; PULSE 97; RESP 16; TEMP 36.8; O2SAT 98; BMI 25.7
[2023-09-05 12:18] LABS: Influenza A PCR NEGATIVE (Negative); Influenza B PCR NEGATIVE (Negative); Resp Syncy Virus RNA Qual PCR NEGATIVE (Negative); SARS COV2 PCR INHOUSE NEGATIVE (Negative)
[2023-09-05 12:22] LABS: IDNOW Serial# 08D9AD1C; Strep A Nucleic Acid Negative (Negative)
== END 2023-09-05 14:31 | disposition left against medical advice (07) ==
LOC: HO.ED 13:54
PROVIDERS: Physician Assistant Medical; Emergency Provider Emergency Medicine; PCP Specialist
DX: R11.2 Nausea with vomiting, unspecified (principal)
CPT/HCPCS: 0241U; 87651; 99281; 99283

== ENCOUNTER 2023-10-01 11:06 | Emergency (ER) | payer OTHER, SELFPAY ==
[2023-10-01 12:07] VITALS: BP 123/79; PULSE 101; RESP 18; TEMP 37.6; O2SAT 98; BMI 26.6
--- NOTE | 2023-10-01 12:12 | ED_ITS ---
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 have her menstrual Period now with normal pattern and no excessive bleeding, patient otherwise declined bleeding from rectum or abnormal stool color, no sick contacts, no runny nose or congestion. Patient admitted to smoking marijuana on a daily basis because it helps her to relax and sleep and help her to eat better otherwise patient declined using any other recreational drugs. Complaining of epigastric abdominal pain since she started vomiting yesterday, no diarrhea. Related Data Previous Rx's ?Medication ?Instructions ?Recorded prednisone 20 mg tablet 20 mg PO DAILY 7 days #7 tabs 09/14/22 loratadine 10 mg tablet (Claritin) 10 mg PO DAILY #5 tabs 09/27/22 prednisone 10 mg tablet 50 mg (5 x 10 mg) PO DAILY 3 days 09/27/22 #15 tabs diphenhydramine HCl 25 mg capsule 25 mg PO TID PRN allergic reaction 09/28/22 (Benadryl) #20 caps epinephrine 0.3 mg/0.3 mL 0.3 mg (0.3 mL) IM Q4H PRN 09/28/22 injection, auto-injector (EpiPen anaphylaxis #2 ea 2-Tello) ferrous sulfate 325 mg (65 mg 325 mg PO DAILY #30 tabs 10/01/23 iron) tablet omeprazole 20 mg capsule,delayed 20 mg PO DAILY 14 days #14 caps 10/01/23 release Allergies Allergy/AdvReac Type Severity Reaction Status Date / Time No Known Allergies Allergy Verified 10/01/23 12:08 [No Known Allergies*] Review of Systems 2 Review of Systems: All other systems are reviewed and are negative Constitutional: Reports as per HPI and Reports no additional constitutional complaints Eyes: Reports as per HPI and Reports no additional eye complaints Reports system reviewed and no additional complaints, except as documented Cardiovascular: Reports as per HPI and Reports no additional cardiovascular complaints Respiratory: Reports as per HPI and Reports no additional respiratory complaints Gastrointestinal: Reports as per HPI and Reports no additional gastrointestinal complaints Genitourinary: Reports no additional female genitourinary complaints Musculoskeletal: Reports no additional musculoskeletal complaints Skin/Breast: Reports system reviewed and no additional complaints, except as docu Psychiatric: Reports no additional psychiatric complaints Endocrine: Reports no additional endocrine complaints Hematologic/Lymphatic: Reports no additional hematologic/lymphatic complaints Allergic/Immunologic: Reports no additional allergic/immunologic complaints Reports system reviewed and no additional complaints, except as documented and Reports Abnormal speech present [facility] Social History Social History Alcohol intake: never Smoked in Last 30 Days: No Substance Use Type: Marijuana Advance Directives: No Advance Directives Information Provided: No Patient : No Physical Exam ED Vital Signs: Vital Signs - 24 hr 10/01/23 12:07 10/01/23 17:16 Temperature 99.6 F 98.0 F Pulse Rate 101 H 88 Respiratory Rate 18 16 Blood Pressure 123/79 107/68 Pulse Oximetry 98 100 Oxygen Delivery Method Room Air Room Air BMI result Body Mass Index 26.6 Vital signs have been reviewed and appear to be correct. Blood pressure elevated. Heart rate normal. Respiratory rate normal. Temperature normal. Oxygen saturation normal. Appearance: Alert. Oriented X3. No acute distress. Head: Normal external exam. Normocephalic. Atraumatic. No [place] signs noted. No raccoon eyes noted Eyes: PERRLA. EOMI. Conjunctiva and sclera normal. Eyelids normal. ENT: TM's Normal. Pharynx normal. Uvula midline. Moist mucous membranes. No trismus noted. No drooling noted. No muffled voice noted. Neck: Normal inspection. Neck supple. FROM. No adenopathy. Thyroid Normal. No meningeal signs. No neck mass noted. CVS: Normal heart rate and rhythm. Heart sound normal. No murmurs noted. Pulses normal throughout. Respiratory: No respiratory distress. Painless inspiration. Breath sounds normal. No wheezes/rales/rhonchi noted. Chest nontender. No accessory muscle usage noted or decreased air movement noted. Abdomen: Soft and nontender. Bowel sounds normal in all 4 quadrants. No distention noted. No organomegaly noted. No visible injury noted. Back: No CVA tenderness. Full range of motion noted. Skin: Skin warm and dry. Normal skin color. Normal skin turgor. No rashes/lesions/lacerations noted. Extremities: No lower extremity edema. Extremities exhibit normal range of motion. Extremities nontender. Neuro: Oriented X 3. Cranial nerve exam: II-XII are grossly intact No motor deficit. No sensory deficit. Reflexes normal. Course Course Course Narrative: RME- 22 year old female with past medical history significant for lupus presents for evaluation of vomiting. Apparently she had low iron on outpatient labs and was sent in for evaluation. Plan for labs Reevaluation(s) Reevaluation #1: history of iron-deficiency with generalized weakness patient with history of lupus will refer the patient to Dr. Coleman to follow-up and will start the patient on ferrous sulfate iron pills. Epigastric pain and vomiting patient is a daily marijuana smoker which could be cannabinoids induced emesis versus gastritis will start the patient on Prilosec. Patient was instructed to drink plenty of fluids. Time: 18:05 Medications Administered Discontinued Medications Generic Name Dose Route Start Last Admin Trade Name Freq PRN Reason Stop Dose Admin Famotidine 20 mg 10/01/23 15:45 10/01/23 16:04 Famotidine/Pf 20 Mg/2 Ml Vial IVPUSH 10/01/23 15:46 20 mg ONCE ONE Administration Ferrous Sulfate 324 mg 10/01/23 15:45 10/01/23 16:04 Ferrous Sulfate 324 Mg Tablet.Dr MORATAYA 10/01/23 15:46 324 mg ONCE ONE Administration Sodium Chloride 1,000 mls @ 999 mls/hr 10/01/23 15:45 10/01/23 17:20 Ns IV 10/01/23 16:45 Infused .Q1H1M ONE Infusion Ondansetron HCl 4 mg 10/01/23 15:45 10/01/23 16:04 Ondansetron Hcl 4 Mg/2 Ml Vial IVPUSH 10/01/23 15:46 4 mg ONCE ONE Administration Medical Decision Making Differential Diagnosis Differential Diagnoses: The differential diagnosis associated with the presentation includes ( Iron deficiency anemia, hypovolemia, respiratory viral infection, UTI, , electrolyte derangement, severe dehydration, gastritis, pancreatitis, gallbladder disease.) Admission/Observation Consideration of admission/observation: Escalation of care including admission/observation considered Lab Data MDM Lab Attestation statement: I reviewed the patient's lab results. 10/01/23 12:32 10/01/23 12:32 Labs: Lab Results 10/01/23 10/01/23 10/01/23 Range/Units 12:32 16:05 17:18 WBC 6.7 (4.8-10.8) X10*3/uL RBC 4.29 (4.20-5.50) X10*6/uL Hgb 12.9 (12.0-16.0) g/dl Hct 36.7 L (37.0-47.0) % MCV 85.5 (80.0-98.0) fL MCH 30.1 (27.0-33.0) pg MCHC 35.1 H (31.0-35.0) g/dl RDW 13.1 (11.0-16.0) % Plt Count 249 (160-400) X10*3/uL MPV 10.7 (9.4-12.3) fL Immature Gran % (Auto) 0.9 H (0.0-0.4) % Neut % (Auto) 74.8 H (45-73) % Lymph % (Auto) 18.4 L (20-40) % [place] % (Auto) 5.5 (2-11) % Eos % (Auto) 0.1 (0-4) % Baso % (Auto) 0.3 (0-2) % Lymph # (Auto) 1.2 (1.2-4.9) X10*3/uL [place] # (Auto) 0.4 (0.1-1.2) X10*3/uL Eos # (Auto) 0.0 (0.0-0.4) X10*3/uL Baso # (Auto) 0.0 (0.0-0.2) X10*3/uL Abs Immat Gran (auto) 0.06 H (0.00-0.03) X10*3/uL Absolute Neuts (auto) 5.0 (2.0-8.3) x10*3/uL Absolute Nucleated RBC 0.000 (0.0-0.012) X10*3/uL Nucleated RBC % (auto) 0.0 (0.0-0.2) /100WBC Sodium 135 (135-145) mmol/L Potassium 4.3 (3.3-5.1) mmol/L Chloride 102 (96-108) mmol/L Carbon Dioxide 23 (22-29) mmol/L Anion Gap 14 (12-20) BUN 10 (9-16) mg/dL Creatinine 0.62 (0.5-1.4) mg/dL Estim Creat Clear Calc 118.7 Estimated GFR > 60 Random Glucose 92 (60-115) mg/dL Calcium 9.6 (8.4-10.2) mg/dL Iron 18 L (30-160) mcg/dL TIBC 260 (228-428) mcg/dL % Saturation 7 L (15-50) % Unsat Iron Binding 242 ug/dL Total Bilirubin 0.3 (0.0-1.0) mg/dL Direct Bilirubin 0.1 (0.0-0.5) mg/dL AST 20 (5-31) U/L ALT 13 (0-31) U/L Alkaline Phosphatase 71 (39-117) U/L Total Protein 7.9 (6.5-8.0) g/dL Albumin 4.1 (3.5-5.0) g/dL Urine Color Yellow Urine Appearance Cloudy Urine pH 7.0 (5.0-9.0) Ur Specific [place] 1.025 (1.005-1.025) Urine Protein 30 (1+) H (Neg-Trace) mg/dL Urine Glucose (UA) Negative (Negative) mg/dL Urine Ketones 15 (Negative) mg/dL Urine Blood Negative (Negative) Urine Nitrite Negative (Negative) Ur Leukocyte Esterase Trace H (Negative) Urine RBC 3-5 H (0-2) /HPF Urine WBC 0-5 (0-5) /HPF Ur Squamous Epith Cells 11-20 (0-2) /HPF Urine Bacteria 4+ (None Seen) Hyaline Casts 0-2 (0-2) /LPF Urine Test NEGATIVE (NEGATIVE) Influenza Type A (PCR) NEGATIVE (Negative) Influenza Type B (PCR) NEGATIVE (Negative) RSV RNA Qual (PCR) NEGATIVE (Negative) SARS-CoV-2 RNA (RT-PCR) NEGATIVE (Negative) Discharge Plan Discharge Clinical Impression: Iron deficiency, Generalized weakness Patient Disposition: Home, Self-Care Instructions: Iron Rich Diet (ED) Prescriptions: New ferrous sulfate 325 mg (65 mg iron) tablet 325 mg PO DAILY Qty: 30 0RF omeprazole 20 mg capsule,delayed release(DR/EC) 20 mg PO DAILY 14 Days Qty: 14 0RF No Action prednisone 20 mg tablet 20 mg PO DAILY 7 Days Qty: 7 0RF loratadine [Claritin] 10 mg tablet 10 mg PO DAILY Qty: 5 0RF prednisone 10 mg tablet 50 mg PO DAILY 3 Days Qty: 15 0RF diphenhydramine HCl [Benadryl] 25 mg capsule 25 mg PO TID PRN (Reason: allergic reaction) Qty: 20 0RF epinephrine [EpiPen 2-Tello] 0.3 mg/0.3 mL auto-injector 0.3 mg IM Q4H PRN (Reason: anaphylaxis) Qty: 2 0RF Referrals: Eva Coleman MD [Physician] - Print Language: Greek
[2023-10-01 12:37] LABS: MANUAL DIFF FLAG NO
[2023-10-01 12:38] LABS: Basophils Percent Auto 0.3 % (0-2); Eosinophils Percent Auto 0.1 % (0-4); Hematocrit 36.7 % (37.0-47.0); Hemoglobin 12.9 g/dl (12.0-16.0); Imm Gran Abs Auto 0.06 X10*3/uL (0.00-0.03); Imm Gran Pct Auto 0.9 % (0.0-0.4); Lymphocytes Absolute Auto 1.2 X10*3/uL (1.2-4.9); Lymphocytes Percent Auto 18.4 % (20-40); Mean Corpuscular HGB Conc 35.1 g/dl (31.0-35.0); Mean Corpuscular Hemoglobin 30.1 pg (27.0-33.0); Mean Corpuscular Volume 85.5 fL (80.0-98.0); Mean Platelet Volume 10.7 fL (9.4-12.3); Monocytes Absolute Auto 0.4 X10*3/uL (0.1-1.2); Monocytes Percent Auto 5.5 % (2-11); Neutrophils Percent Auto 74.8 % (45-73); Platelet Count 249 X10*3/uL (160-400); Red Blood Count 4.29 X10*6/uL (4.20-5.50); Red Cell Distribution Width 13.1 % (11.0-16.0); White Blood Count 6.7 X10*3/uL (4.8-10.8)
[2023-10-01 12:53] LABS: Alanine Aminotransferase 13 U/L (0-31); Albumin Level 4.1 g/dL (3.5-5.0); Alkaline Phosphatase 71 U/L (39-117); Anion Gap 14 (12-20); Aspartate Amino Transferase 20 U/L (5-31); Bilirubin Direct 0.1 mg/dL (0.0-0.5); Bilirubin Total 0.3 mg/dL (0.0-1.0); Blood Urea Nitrogen 10 mg/dL (9-16); Calcium 9.6 mg/dL (8.4-10.2); Carbon Dioxide 23 mmol/L (22-29); Chloride 102 mmol/L (96-108); Creatinine Clr Calc Pharmacy 118.7; Estimated Glomerular Filt Rate > 60; Glucose Random 92 mg/dL (60-115); Iron 18 mcg/dL (30-160); Percent Iron Saturation 7 % (15-50); Potassium 4.3 mmol/L (3.3-5.1); Sodium 135 mmol/L (135-145); Total Iron Binding Capacity 260 mcg/dL (228-428); Total Protein 7.9 g/dL (6.5-8.0); Unsaturated Iron Binding 242 ug/dL
--- NOTE | 2023-10-01 15:47 | ED_ITS ---
HPI - Weakness General Chief complaint: Weakness Stated complaint: Vomiting, weakness Time Seen by Provider: 10/01/23 15:34 Source: patient Mode of arrival: ambulatory Limitations: no limitations History of Present Illness HPI Narrative: 22-year-old female history of lupus was referred from her renal doctor for evaluation of generalized weakness for a month Related Data Previous Rx's ?Medication ?Instructions ?Recorded prednisone 20 mg tablet 20 mg PO DAILY 7 days #7 tabs 09/14/22 loratadine 10 mg tablet (Claritin) 10 mg PO DAILY #5 tabs 09/27/22 prednisone 10 mg tablet 50 mg (5 x 10 mg) PO DAILY 3 days 09/27/22 #15 tabs diphenhydramine HCl 25 mg capsule 25 mg PO TID PRN allergic reaction 09/28/22 (Benadryl) #20 caps epinephrine 0.3 mg/0.3 mL 0.3 mg (0.3 mL) IM Q4H PRN 09/28/22 injection, auto-injector (EpiPen anaphylaxis #2 ea 2-Tello) Allergies Allergy/AdvReac Type Severity Reaction Status Date / Time No Known Allergies Allergy Verified 10/01/23 12:08 [No Known Allergies*] [facility] Social History Social History Alcohol intake: never Substance Use Type: Marijuana Advance Directives: No Advance Directives Information Provided: No Physical Exam 2 Vital Signs: Vital Signs: Last Vital Signs Temp 99.6 F 10/01/23 12:07 Pulse 101 H 10/01/23 12:07 Resp 18 10/01/23 12:07 BP 123/79 10/01/23 12:07 Pulse Ox 98 10/01/23 12:07 O2 Del Method Room Air 10/01/23 12:07 BMI result Body Mass Index 26.6 Medical Decision Making Lab Data 10/01/23 12:32 10/01/23 12:32 Labs: Lab Results 10/01/23 Range/Units 12:32 WBC 6.7 (4.8-10.8) X10*3/uL RBC 4.29 (4.20-5.50) X10*6/uL Hgb 12.9 (12.0-16.0) g/dl Hct 36.7 L (37.0-47.0) % MCV 85.5 (80.0-98.0) fL MCH 30.1 (27.0-33.0) pg MCHC 35.1 H (31.0-35.0) g/dl RDW 13.1 (11.0-16.0) % Plt Count 249 (160-400) X10*3/uL MPV 10.7 (9.4-12.3) fL Immature Gran % (Auto) 0.9 H (0.0-0.4) % Neut % (Auto) 74.8 H (45-73) % Lymph % (Auto) 18.4 L (20-40) % [place] % (Auto) 5.5 (2-11) % Eos % (Auto) 0.1 (0-4) % Baso % (Auto) 0.3 (0-2) % Lymph # (Auto) 1.2 (1.2-4.9) X10*3/uL [place] # (Auto) 0.4 (0.1-1.2) X10*3/uL Eos # (Auto) 0.0 (0.0-0.4) X10*3/uL Baso # (Auto) 0.0 (0.0-0.2) X10*3/uL Abs Immat Gran (auto) 0.06 H (0.00-0.03) X10*3/uL Absolute Neuts (auto) 5.0 (2.0-8.3) x10*3/uL Absolute Nucleated RBC 0.000 (0.0-0.012) X10*3/uL Nucleated RBC % (auto) 0.0 (0.0-0.2) /100WBC Sodium 135 (135-145) mmol/L Potassium 4.3 (3.3-5.1) mmol/L Chloride 102 (96-108) mmol/L Carbon Dioxide 23 (22-29) mmol/L Anion Gap 14 (12-20) BUN 10 (9-16) mg/dL Creatinine 0.62 (0.5-1.4) mg/dL Estim Creat Clear Calc 118.7 Estimated GFR > 60 Random Glucose 92 (60-115) mg/dL Calcium 9.6 (8.4-10.2) mg/dL Iron 18 L (30-160) mcg/dL TIBC 260 (228-428) mcg/dL % Saturation 7 L (15-50) % Unsat Iron Binding 242 ug/dL Total Bilirubin 0.3 (0.0-1.0) mg/dL Direct Bilirubin 0.1 (0.0-0.5) mg/dL AST 20 (5-31) U/L ALT 13 (0-31) U/L Alkaline Phosphatase 71 (39-117) U/L Total Protein 7.9 (6.5-8.0) g/dL Albumin 4.1 (3.5-5.0) g/dL Discharge Plan Discharge Prescriptions: No Action prednisone 20 mg tablet 20 mg PO DAILY 7 Days Qty: 7 0RF loratadine [Claritin] 10 mg tablet 10 mg PO DAILY Qty: 5 0RF prednisone 10 mg tablet 50 mg PO DAILY 3 Days Qty: 15 0RF diphenhydramine HCl [Benadryl] 25 mg capsule 25 mg PO TID PRN (Reason: allergic reaction) Qty: 20 0RF epinephrine [EpiPen 2-Tello] 0.3 mg/0.3 mL auto-injector 0.3 mg IM Q4H PRN (Reason: anaphylaxis) Qty: 2 0RF Print Language: [place]
[2023-10-01] MEDS: 0.9 % Sodium Chloride 1,000 ML 999 ML IV (16:03)
[2023-10-01] MEDS: Famotidine/PF 20 MG/2 ML VIAL IVPUSH (16:04)
[2023-10-01] MEDS: Ferrous Sulfate 324 MG TABLET.DR PO (16:04)
[2023-10-01] MEDS: ondansetron HCL 4 MG/2 ML VIAL IVPUSH (16:04)
[2023-10-01 17:09] LABS: Influenza A PCR NEGATIVE (Negative); Influenza B PCR NEGATIVE (Negative); Resp Syncy Virus RNA Qual PCR NEGATIVE (Negative); SARS COV2 PCR INHOUSE NEGATIVE (Negative)
[2023-10-01 17:16] VITALS: BP 107/68; PULSE 88; RESP 16; TEMP 36.7; O2SAT 100
[2023-10-01 17:27] LABS: Appearance Urine Cloudy; Color Urine Yellow; Glucose Urine UA Negative (Negative); Leukocyte Esterase Urine Trace (Negative); Nitrite Urine Negative (Negative); Specific Gravity - Urine 1.025 (1.005-1.025); UMIC TRIGGER UACC YES; Urine Blood Negative (Negative); Urine Ketones 15 mg/dL (Negative); Urine Protein 30 (1+) mg/dL (Neg-Trace)
[2023-10-01 17:30] LABS: UPreg QC Valid YES; Urine Pregnancy NEGATIVE (NEGATIVE)
[2023-10-01 17:48] LABS: Bacteria Urine 4+ (None Seen); Hyaline Casts Urine 0-2 /LPF (0-2); WBC Urine 0-5 /HPF (0-5)
[2023-10-01 18:34] LABS: Lipase 39 U/L (8-78)
[2023-10-01 19:36] VITALS: BP 105/61; PULSE 60; RESP 16; TEMP 36.7; O2SAT 100
[2023-10-01 19:45] VITALS: BP 105/61; PULSE 60; RESP 16; TEMP 36.7; O2SAT 100
== END 2023-10-01 19:45 | disposition home or self-care (01) ==
PROVIDERS: Emergency Provider Emergency Medicine
DX: E61.1 Iron deficiency (principal); R53.1 Weakness; Z03.818 Encounter for observation for suspected exposure to other biological agents ruled out
CPT/HCPCS: 0241U; 36415; 80048; 80076; 81001; 81025; 83540; 83690; 85025; 96361; 96374; 96375; 99284; J2405

== ENCOUNTER 2023-11-19 18:28 | Emergency (ER) | payer OTHER, SELFPAY ==
[2023-11-19 18:30] VITALS: BP 133/94; PULSE 127; RESP 16; TEMP 37.2; O2SAT 99; BMI 24.2
--- NOTE | 2023-11-19 18:31 | ED.GENADULT ---
HPI - General Adult General Chief complaint: Nausea/Vomiting/Diarrhea Stated complaint: vomiting h/o lupus Time Seen by Provider: 11/19/23 18:54 Source: patient and family (Mother) Mode of arrival: ambulatory Limitations: no limitations History of Present Illness ED Provider: Dr. Doug Ennis HPI narrative: 22-year-old female history of lupus and lupus kidney disease who presents emergency department for evaluation of vomiting x1 week. She states that she has not been able to hold down any food past week. She also is complaining of epigastric pain which she describes as a swollen, pressure-like pain which is been constant, made worse by the vomiting. Patient states she has had fever and chills but did not take her temperature. She has had sweats. She denied chest pain, shortness of breath. She has not had any change in her bowel movements. The patient was seen on 10/01/2023 for nausea and vomiting which is felt to be secondary to cannabis hyperemesis syndrome. She also had low iron at that time. Patient states that she was unable to take iron since it made her feel worse. The patient does smoke marijuana daily. She denies any other drug use. Related Data Previous Rx's ?Medication ?Instructions ?Recorded prednisone 20 mg tablet 20 mg PO DAILY 7 days #7 tabs 09/14/22 loratadine 10 mg tablet (Claritin) 10 mg PO DAILY #5 tabs 09/27/22 prednisone 10 mg tablet 50 mg (5 x 10 mg) PO DAILY 3 days 09/27/22 #15 tabs diphenhydramine HCl 25 mg capsule 25 mg PO TID PRN allergic reaction 09/28/22 (Benadryl) #20 caps epinephrine 0.3 mg/0.3 mL 0.3 mg (0.3 mL) IM Q4H PRN 09/28/22 injection, auto-injector (EpiPen anaphylaxis #2 ea 2-Tello) ferrous sulfate 325 mg (65 mg 325 mg PO DAILY #30 tabs 10/01/23 iron) tablet omeprazole 20 mg capsule,delayed 20 mg PO DAILY 14 days #14 caps 10/01/23 release diphenhydramine HCl 25 mg capsule 50 mg (2 x 25 mg) PO Q6H PRN 11/19/23 headache, nausea, vomiting #20 caps famotidine 20 mg tablet 20 mg PO DAILY #30 tabs 11/19/23 metoclopramide HCl 10 mg tablet 10 mg PO Q6H PRN nausea and 11/19/23 (Reglan) vomiting #20 tabs Allergies Allergy/AdvReac Type Severity Reaction Status Date / Time No Known Allergies Allergy Verified 11/19/23 18:33 [No Known Allergies*] [facility] Past Medical History [facility] Narrative: Social history: The patient denies tobacco use. She denies alcohol use. She does smoke marijuana daily. Social History Social History Alcohol intake: never Substance Use Type: Marijuana Advance Directives: No Advance Directives Information Provided: No Physical Exam ED Vital Signs: Vital Signs - 24 hr 11/19/23 18:30 11/19/23 19:51 11/19/23 20:27 Temperature 99.0 F 100.1 F 98.9 F Pulse Rate 127 H 113 H 109 H Respiratory Rate 16 18 20 Blood Pressure 133/94 H 116/77 Pulse Oximetry 99 97 99 Oxygen Delivery Method Room Air Room Air Room Air BMI result Body Mass Index 24.2 Vital signs revealed an elevated heart rate of 126 and an elevated blood pressure of 133/94 otherwise unremarkable Exam: General: Awake, appears to be uncomfortable secondary to her abdominal pain, nausea and vomiting here in the emergency emergency department clinician: Normocephalic, atraumatic EENT: PERRL, Lids normal, sclera normal, conjunctiva normal, nose normal , ears normal, throat without erythema or exudates Neck: Supple, no adenopathy Lung: breath sounds symmetric, no wheezing, rales or rhonchi Chest: symmetric movement, nontender Heart: regular rate and rhythm, normal S1, S2 no murmurs or rubs Abdomen: soft, mild to moderate epigastric tenderness, no rebound, no voluntary or involuntary guarding, no right upper quadrant or right lower quadrant tenderness. Back: no vertebral tenderness, no CVAT Extremities: no deformities, moves all extremities symmetrically Neuro: Awake, alert, oriented, normal speech, cranial nerves intact, moves all extremities symmetrically Psych: Pleasant, cooperative Course Course Course Narrative: This is an RME done by ABIDA Ferreira: Additional HPI, ROS, PE not included below will be deferred to primary provider. 22-year-old female pertinent history of lupus, cyclic vomiting came in to the ED for evaluation of weakness for few days, patient also complaining of subjective fevers an chills, nausea and vomiting. No known sick contacts PE - patient well appearing Medications Administered Discontinued Medications Generic Name Dose Route Start Last Admin Trade Name Dorinda PRN Reason Stop Dose Admin Droperidol 1.25 mg 11/19/23 19:09 11/19/23 19:26 Droperidol 5 Mg/2 Ml Vial IVPUSH 11/19/23 19:10 1.25 mg ONCE ONE Administration Famotidine 20 mg 11/19/23 19:09 11/19/23 19:26 Famotidine/Pf 20 Mg/2 Ml Vial IVPUSH 11/19/23 19:10 20 mg ONCE ONE Administration Sodium Chloride 1,000 mls @ 999 mls/hr 11/19/23 19:09 11/19/23 20:32 Ns IV 11/19/23 20:09 Infused .Q1H1M STA Infusion Ketorolac Tromethamine 15 mg 11/19/23 19:09 11/19/23 19:26 Ketorolac Tromethamine 15 Mg/Ml Vial IVPUSH 11/19/23 19:10 15 mg ONCE STA Administration Medical Decision Making Medical Decision Making MDM Narrative: 22-year-old female with a history of lupus and lupus kidney disease who presents emergency department for evaluation of vomiting x1 week, epigastric pain and unable to hold down any food or fluid. Patient had a similar presentation in 10/20/2023 and diagnosed with cannabis hyperemesis syndrome. Patient continues to smoke marijuana daily. Vital signs did reveal an elevated heart rate and elevated blood pressure. Exam did reveal epigastric tenderness. Differential diagnosis: ?Includes but is not limited to cyclic vomiting syndrome, cannabis emesis syndrome, gastritis, esophagitis, anemia, electrolyte abnormalities Following evaluation was ordered: CBC, CMP, magnesium, lipase, drug screen urine, urinalysis Patient was initially treated with the following: IV insert, cardiac monitoring, pulse oximetry vomiting, Pepcid 20 mg IV, Toradol 15 mg IV, droperidol 1.25 mg IV Course: 19:20 My independent interpretation patient's laboratory evaluation is as follows: CBC was normal. CMP revealed an elevated glucose of 117 and elevated AST of 33. Lipase was normal. Urine test was negative. Urinalysis was positive for protein. Microscopic urine exam revealed 3-5 RBCs, 0-5 WBCs, 4+ bacteria, 11-20 squamous epithelial cells. Patient catch specimen, protein inner ear in his promptly consistent with her lupus kidney disease. 22:12 Patient felt significantly better after the above treatment and had no further episodes of nausea and vomiting. She states that her abdominal pain also improved significantly. I did discuss cyclic vomiting syndrome and cannabis hyperemesis syndrome with the patient. Patient was prescribed Pepcid 20 mg daily for 30 days, Reglan 10 mg with his Benadryl 50 mg every 6 hours as needed for nausea and vomiting. She was advised to stop using marijuana/THC product for at least 3-6 months. She was given printed and verbal instructions and discharged home Admission/Observation Consideration of admission/observation: Escalation of care including admission/observation considered Lab Data MDM Lab Attestation statement: I reviewed the patient's lab results. 11/19/23 18:37 11/19/23 18:37 Labs: Lab Results 11/19/23 11/19/23 Range/Units 18:37 20:26 WBC 6.6 (4.8-10.8) X10*3/uL RBC 4.35 (4.20-5.50) X10*6/uL Hgb 12.9 (12.0-16.0) g/dl Hct 36.1 L (37.0-47.0) % MCV 83.0 (80.0-98.0) fL MCH 29.7 (27.0-33.0) pg MCHC 35.7 H (31.0-35.0) g/dl RDW 14.3 (11.0-16.0) % Plt Count 167 D (160-400) X10*3/uL MPV 10.6 (9.4-12.3) fL Immature Gran % (Auto) 0.6 H (0.0-0.4) % Neut % (Auto) 81.1 H (45-73) % Lymph % (Auto) 13.4 L (20-40) % [place] % (Auto) 4.7 (2-11) % Eos % (Auto) 0.0 (0-4) % Baso % (Auto) 0.2 (0-2) % Lymph # (Auto) 0.9 L (1.2-4.9) X10*3/uL [place] # (Auto) 0.3 (0.1-1.2) X10*3/uL Eos # (Auto) 0.0 (0.0-0.4) X10*3/uL Baso # (Auto) 0.0 (0.0-0.2) X10*3/uL Abs Immat Gran (auto) 0.04 H (0.00-0.03) X10*3/uL Absolute Neuts (auto) 5.4 (2.0-8.3) x10*3/uL Absolute Nucleated RBC 0.000 (0.0-0.012) X10*3/uL Nucleated RBC % (auto) 0.0 (0.0-0.2) /100WBC Sodium 136 (135-145) mmol/L Potassium 3.7 (3.3-5.1) mmol/L Chloride 100 (96-108) mmol/L Carbon Dioxide 25 (22-29) mmol/L Anion Gap 15 (12-20) BUN 9 (9-16) mg/dL Creatinine 0.73 (0.5-1.4) mg/dL Estim Creat Clear Calc 100.7 Estimated GFR > 60 Random Glucose 117 H (60-115) mg/dL Calcium 9.9 (8.4-10.2) mg/dL Magnesium 1.9 (1.6-2.6) mg/dL Total Bilirubin 0.5 (0.0-1.0) mg/dL AST 33 H (5-31) U/L ALT 14 (0-31) U/L Alkaline Phosphatase 66 (39-117) U/L Total Protein 8.4 H (6.5-8.0) g/dL Albumin 4.3 (3.5-5.0) g/dL Lipase 36 (8-78) U/L Beta HCG, Quant < 2 mIU/mL Urine Color Yellow Urine Appearance Cloudy Urine pH 6.0 (5.0-9.0) Ur Specific Elizabeth 1.020 (1.005-1.025) Urine Protein 30 (1+) H (Neg-Trace) mg/dL Urine Glucose (UA) Negative (Negative) mg/dL Urine Ketones 15 (Negative) mg/dL Urine Blood Negative (Negative) Urine Nitrite Negative (Negative) Ur Leukocyte Esterase Trace H (Negative) Urine RBC 0-2 (0-2) /HPF Urine WBC 0-5 (0-5) /HPF Ur Squamous Epith Cells >20 (0-2) /HPF Urine Bacteria 3+ (None Seen) Hyaline Casts 11-20 (0-2) /LPF Urine Opiates Screen Not Detected (Not Detect) Ur Buprenorphine Scrn Not Detected (Not Detect) ng/mL Ur Oxycodone Screen Not Detected (Not Detect) ng/mL Urine Methadone Screen Not Detected (Not Detect) ng/mL Urine Fentanyl Screen Not Detected (Not Detect) Ur Barbiturates Screen Not Detected (Not Detect) Ur Phencyclidine Scrn Not Detected (Not Detect) Ur Amphetamines Screen Not Detected (Not Detect) U Benzodiazepines Scrn Not Detected (Not Detect) Urine Cocaine Screen Not Detected (Not Detect) U Marijuana (THC) Screen POSITIVE H (Not Detect) Prescription Management I considered prescription management with: Other (Antiemetics, H2 blockers, antihistamines) Chronic Conditions Patient?s care impacted by: Other (Lupus) Discharge Plan Discharge Clinical Impression: Cyclic vomiting syndrome Patient Disposition: Home, Self-Care Additional Instructions: Your symptoms are consistent with cyclic vomiting syndrome. Smoking or eating marijuana multiple times a day can lead to cannabis (marijuana) hyperemesis syndrome which is a form of cyclic vomiting syndrome. Smoking marijuana or eating marijuana prior daily changes your brain chemistries and makes you have nausea, vomiting and abdominal pain. The treatment is to stop smoking were eating marijuana for 3-6 months and your symptoms will improve. You may also have increased inflammation in your stomach (gastritis) secondary to too much acid secondary to frequent vomiting. Take Pepcid (famotidine) 20 mg pills, 1 pill once a day for 1 month. This medication will reduce the acid in your stomach and help your stomach he will Take Reglan (metoclopramide) 10 mg pills, 1 pill every 6 hours as needed for nausea and vomiting. When you take Reglan I also want you to take Benadryl (diphenhydramine) 25 mg pills, 2 pills. The Benadryl helps make the Reglan more effective. Taking these medications will make you sleepy so do not drive or work while you take these medications Follow-up with your doctor in 2 days. Please return to the emergency department if your symptoms get worse or if you develop any symptoms that are concerning to you. Your nausea and vomiting was treated with droperidol 1.25 mg IV. This is often a very good medicine that treats cyclic vomiting syndrome. If you come back to emergency department should ask the provider to give you this medication since it was very effective in treating your nausea and vomiting at today's visit. You also received Pepcid 20 mg IV and Toradol 15 mg IV Prescriptions: New famotidine 20 mg tablet 20 mg PO DAILY Qty: 30 0RF diphenhydramine HCl 25 mg capsule 50 mg PO Q6H PRN (Reason: headache, nausea, vomiting) Qty: 20 0RF metoclopramide HCl [Reglan] 10 mg tablet 10 mg PO Q6H PRN (Reason: nausea and vomiting) Qty: 20 0RF No Action prednisone 20 mg tablet 20 mg PO DAILY 7 Days Qty: 7 0RF loratadine [Claritin] 10 mg tablet 10 mg PO DAILY Qty: 5 0RF prednisone 10 mg tablet 50 mg PO DAILY 3 Days Qty: 15 0RF ferrous sulfate 325 mg (65 mg iron) tablet 325 mg PO DAILY Qty: 30 0RF omeprazole 20 mg capsule,delayed release(DR/EC) 20 mg PO DAILY 14 Days Qty: 14 0RF diphenhydramine HCl [Benadryl] 25 mg capsule 25 mg PO TID PRN (Reason: allergic reaction) Qty: 20 0RF epinephrine [EpiPen 2-Tello] 0.3 mg/0.3 mL auto-injector 0.3 mg IM Q4H PRN (Reason: anaphylaxis) Qty: 2 0RF Print Language: Citizen [place]
[2023-11-19 18:41] LABS: MANUAL DIFF FLAG NO
[2023-11-19 18:43] LABS: Basophils Percent Auto 0.2 % (0-2); Hematocrit 36.1 % (37.0-47.0); Hemoglobin 12.9 g/dl (12.0-16.0); Imm Gran Abs Auto 0.04 X10*3/uL (0.00-0.03); Imm Gran Pct Auto 0.6 % (0.0-0.4); Lymphocytes Absolute Auto 0.9 X10*3/uL (1.2-4.9); Lymphocytes Percent Auto 13.4 % (20-40); Mean Corpuscular HGB Conc 35.7 g/dl (31.0-35.0); Mean Corpuscular Hemoglobin 29.7 pg (27.0-33.0); Mean Platelet Volume 10.6 fL (9.4-12.3); Monocytes Absolute Auto 0.3 X10*3/uL (0.1-1.2); Monocytes Percent Auto 4.7 % (2-11); Neutrophils Absolute Auto 5.4 x10*3/uL (2.0-8.3); Neutrophils Percent Auto 81.1 % (45-73); Platelet Count 167 X10*3/uL (160-400); Red Blood Count 4.35 X10*6/uL (4.20-5.50); Red Cell Distribution Width 14.3 % (11.0-16.0); White Blood Count 6.6 X10*3/uL (4.8-10.8)
[2023-11-19 19:05] LABS: Alanine Aminotransferase 14 U/L (0-31); Albumin Level 4.3 g/dL (3.5-5.0); Alkaline Phosphatase 66 U/L (39-117); Anion Gap 15 (12-20); Aspartate Amino Transferase 33 U/L (5-31); Bilirubin Total 0.5 mg/dL (0.0-1.0); Blood Urea Nitrogen 9 mg/dL (9-16); Calcium 9.9 mg/dL (8.4-10.2); Carbon Dioxide 25 mmol/L (22-29); Chloride 100 mmol/L (96-108); Creatinine Clr Calc Pharmacy 100.7; Estimated Glomerular Filt Rate > 60; Glucose Random 117 mg/dL (60-115); HCG Quantitative < 2 mIU/mL; Lipase 36 U/L (8-78); Magnesium 1.9 mg/dL (1.6-2.6); Potassium 3.7 mmol/L (3.3-5.1); Sodium 136 mmol/L (135-145); Total Protein 8.4 g/dL (6.5-8.0)
[2023-11-19] MEDS: 0.9 % Sodium Chloride 1,000 ML 999 ML IV (19:21)
[2023-11-19] MEDS: Famotidine/PF 20 MG/2 ML VIAL IVPUSH (19:26)
[2023-11-19] MEDS: droPERidol 5 MG/2 ML VIAL 1.25 MG IVPUSH (19:26)
[2023-11-19] MEDS: Ketorolac Tromethamine 15 MG/ML VIAL IVPUSH (19:26)
[2023-11-19 19:51] VITALS: BP 116/77; PULSE 113; RESP 18; TEMP 37.8; O2SAT 97
[2023-11-19 20:27] VITALS: PULSE 109; RESP 20; TEMP 37.2; O2SAT 99
[2023-11-19 20:38] LABS: Appearance Urine Cloudy; Color Urine Yellow; Glucose Urine UA Negative (Negative); Leukocyte Esterase Urine Trace (Negative); Nitrite Urine Negative (Negative); UMIC TRIGGER UACC YES; Urine Blood Negative (Negative); Urine Ketones 15 mg/dL (Negative); Urine Protein 30 (1+) mg/dL (Neg-Trace)
[2023-11-19 20:51] LABS: Amphetamine Screen Urine Not Detected (Not Detect); Barbiturates, Urine Not Detected (Not Detect); Benzodiazepines Screen Urine Not Detected (Not Detect); Buprenorphine Scr Not Detected (Not Detect); Cannabinoid Screen Urine POSITIVE (Not Detect); Cocaine Screen Urine Not Detected (Not Detect); Fentanyl, urine Not Detected (Not Detect); Methadone Screen, Urine Not Detected (Not Detect); Opiate Screen Urine Not Detected (Not Detect); Oxycodone Screen Urine Not Detected (Not Detect); Phencyclidine Screen Urine Not Detected (Not Detect)
[2023-11-19 20:52] LABS: Bacteria Urine 3+ (None Seen); RBC Urine 0-2 /HPF (0-2); Squamous Epithelial Cell Urine >20 /HPF (0-2); WBC Urine 0-5 /HPF (0-5)
[2023-11-19 21:51] VITALS: RESP 18
[2023-11-19 22:30] VITALS: BP 116/77; PULSE 100; RESP 17; TEMP 36.6; O2SAT 99
== END 2023-11-19 22:31 | disposition home or self-care (01) ==
PROVIDERS: Physician Assistant; Emergency Provider Emergency Medicine Emergency Medical Services
DX: R11.15 Cyclical vomiting syndrome unrelated to migraine (principal); R11.2 Nausea with vomiting, unspecified; F12.19 Cannabis abuse with unspecified cannabis-induced disorder; R10.13 Epigastric pain; Z79.899 Other long term (current) drug therapy
CPT/HCPCS: 36415; 80053; 80307; 81001; 83690; 83735; 84702; 85025; 96361; 96374; 96375; 99284; J1790; J1885

== ENCOUNTER 2024-03-03 15:28 | Emergency (ER) | payer OTHER, SELFPAY ==
--- NOTE | ~2024-03-03 | XR_ITS ---
EXAMINATION: XR CHEST CLINICAL INFORMATION: Chest pain COMPARISON: Chest x-ray September 14, 2022 TECHNIQUE: 2 views of the chest were obtained. FINDINGS: No significant abnormality is noted involving the heart, lungs, mediastinum, bony thorax or soft tissues. XR/XR chest 2V IMPRESSION: Unremarkable examination. Electronically signed by: Dick Barnard MD 03/03/2024 06:00 PM EDT RP
[2024-03-03 16:15] VITALS: BP 107/73; PULSE 118; RESP 18; TEMP 37.3; O2SAT 98; BMI 21.3
--- NOTE | 2024-03-03 16:15 | ED.GENADULT ---
HPI - General Adult General Chief complaint: General Medical Stated complaint: lupus flare Related Data Previous Rx's ?Medication ?Instructions ?Recorded prednisone 20 mg tablet 20 mg PO DAILY 7 days #7 tabs 09/14/22 loratadine 10 mg tablet (Claritin) 10 mg PO DAILY #5 tabs 09/27/22 prednisone 10 mg tablet 50 mg (5 x 10 mg) PO DAILY 3 days 09/27/22 #15 tabs diphenhydramine HCl 25 mg capsule 25 mg PO TID PRN allergic reaction 09/28/22 (Benadryl) #20 caps epinephrine 0.3 mg/0.3 mL 0.3 mg (0.3 mL) IM Q4H PRN 09/28/22 injection, auto-injector (EpiPen anaphylaxis #2 ea 2-Tello) ferrous sulfate 325 mg (65 mg 325 mg PO DAILY #30 tabs 10/01/23 iron) tablet omeprazole 20 mg capsule,delayed 20 mg PO DAILY 14 days #14 caps 10/01/23 release diphenhydramine HCl 25 mg capsule 50 mg (2 x 25 mg) PO Q6H PRN 11/19/23 headache, nausea, vomiting #20 caps famotidine 20 mg tablet 20 mg PO DAILY #30 tabs 11/19/23 metoclopramide HCl 10 mg tablet 10 mg PO Q6H PRN nausea and 11/19/23 (Reglan) vomiting #20 tabs Allergies Allergy/AdvReac Type Severity Reaction Status Date / Time No Known Allergies Allergy Verified 03/03/24 16:19 [No Known Allergies*] [facility] Social History Social History Alcohol intake: never Substance Use Type: Marijuana Advance Directives: No Advance Directives Information Provided: No Physical Exam ED Vital Signs: BMI result Body Mass Index 21.3 Course Course Course Narrative: This is a rapid medical exam performed by Nimco Gamino NP: Additional HPI, ROS, PE not included below will be deferred to primary provider. Patient is a 23-year-old female with history of lupus, asthma presenting to ED with mother who reports over past few months patient has had fatigue, nausea and vomiting, hyperpigmentation to her face, weight loss. Has labs but told they were normal. Patient complains of chest pain. Plan: EKG, labs, viral serology Medical Decision Making Lab Data 03/03/24 16:32 03/03/24 16:32 Labs: Lab Results 03/03/24 Range/Units 16:32 WBC 4.8 (4.8-10.8) X10*3/uL RBC 3.63 L (4.20-5.50) X10*6/uL Hgb 10.2 L D (12.0-16.0) g/dl Hct 30.3 L (37.0-47.0) % MCV 83.5 (80.0-98.0) fL MCH 28.1 (27.0-33.0) pg MCHC 33.7 (31.0-35.0) g/dl RDW 17.1 H (11.0-16.0) % Plt Count 290 D (160-400) X10*3/uL MPV 10.3 (9.4-12.3) fL Immature Gran % (Auto) 2.3 H (0.0-0.4) % Neut % (Auto) 81.6 H (45-73) % Lymph % (Auto) 12.8 L (20-40) % [place] % (Auto) 2.9 (2-11) % Eos % (Auto) 0.2 (0-4) % Baso % (Auto) 0.2 (0-2) % Lymph # (Auto) 0.6 L (1.2-4.9) X10*3/uL [place] # (Auto) 0.1 (0.1-1.2) X10*3/uL Eos # (Auto) 0.0 (0.0-0.4) X10*3/uL Baso # (Auto) 0.0 (0.0-0.2) X10*3/uL Abs Immat Gran (auto) 0.11 H (0.00-0.03) X10*3/uL Absolute Neuts (auto) 3.9 (2.0-8.3) x10*3/uL Absolute Nucleated RBC 0.000 (0.0-0.012) X10*3/uL Nucleated RBC % (auto) 0.0 (0.0-0.2) /100WBC ESR 70 H (0-20) MM/HR PT 13.3 H (10.9-12.4) SEC INR 1.1 (0.9-1.1) Sodium 134 L (135-145) mmol/L Potassium 3.7 (3.3-5.1) mmol/L Chloride 101 (96-108) mmol/L Carbon Dioxide 25 (22-29) mmol/L Anion Gap 12 (12-20) BUN 6 L (9-16) mg/dL Creatinine 0.57 (0.5-1.4) mg/dL Estim Creat Clear Calc 112.1 Estimated GFR > 60 Random Glucose 96 (60-115) mg/dL Calcium 8.7 D (8.4-10.2) mg/dL Magnesium 1.8 (1.6-2.6) mg/dL Total Bilirubin 0.4 (0.0-1.0) mg/dL AST 31 (5-31) U/L ALT 11 (0-31) U/L Alkaline Phosphatase 53 (39-117) U/L Troponin I High Sens < 2.7 (<3.5-17.0) ng/L C-Reactive Protein 1.12 H (< or = 0.50) mg/dL Total Protein 7.3 (6.5-8.0) g/dL Albumin 3.2 L (3.5-5.0) g/dL Beta HCG, Quant < 2 mIU/mL Influenza Type A (PCR) NEGATIVE (Negative) Influenza Type B (PCR) NEGATIVE (Negative) RSV RNA Qual (PCR) NEGATIVE (Negative) SARS-CoV-2 RNA (RT-PCR) NEGATIVE (Negative) Discharge Plan Discharge Clinical Impression: Diagnosis unknown Patient Disposition: Left W/O Completing Treatment Prescriptions: No Action prednisone 20 mg tablet 20 mg PO DAILY 7 Days Qty: 7 0RF loratadine [Claritin] 10 mg tablet 10 mg PO DAILY Qty: 5 0RF prednisone 10 mg tablet 50 mg PO DAILY 3 Days Qty: 15 0RF ferrous sulfate 325 mg (65 mg iron) tablet 325 mg PO DAILY Qty: 30 0RF omeprazole 20 mg capsule,delayed release(DR/EC) 20 mg PO DAILY 14 Days Qty: 14 0RF famotidine 20 mg tablet 20 mg PO DAILY Qty: 30 0RF diphenhydramine HCl 25 mg capsule 50 mg PO Q6H PRN (Reason: headache, nausea, vomiting) Qty: 20 0RF metoclopramide HCl [Reglan] 10 mg tablet 10 mg PO Q6H PRN (Reason: nausea and vomiting) Qty: 20 0RF diphenhydramine HCl [Benadryl] 25 mg capsule 25 mg PO TID PRN (Reason: allergic reaction) Qty: 20 0RF epinephrine [EpiPen 2-Tello] 0.3 mg/0.3 mL auto-injector 0.3 mg IM Q4H PRN (Reason: anaphylaxis) Qty: 2 0RF Discharge Date/Time: 03/03/24 20:19
--- NOTE | 2024-03-03 16:17 | ECG_ITS ---
Test Reason : CHEST PAIN Blood Pressure : / mmHG Vent. Rate : 120 BPM Atrial Rate : 120 BPM P-R Int : 130 ms QRS Dur : 074 ms QT Int : 334 ms P-R-T Axes : 038 067 017 degrees QTc Int : 472 ms Sinus tachycardia Otherwise normal ECG When compared with ECG of 14-SEP-2022 22:40, Heart rate has increased Referred By: Maya Gamino Electronically Signed By:WANDY PALACIO
[2024-03-03 16:40] LABS: MANUAL DIFF FLAG NO
[2024-03-03 16:47] LABS: Basophils Percent Auto 0.2 % (0-2); Eosinophils Percent Auto 0.2 % (0-4); Hematocrit 30.3 % (37.0-47.0); Hemoglobin 10.2 g/dl (12.0-16.0); INTERNATIONAL NORM RATIO 1.1 (0.9-1.1); Imm Gran Abs Auto 0.11 X10*3/uL (0.00-0.03); Imm Gran Pct Auto 2.3 % (0.0-0.4); Lymphocytes Absolute Auto 0.6 X10*3/uL (1.2-4.9); Lymphocytes Percent Auto 12.8 % (20-40); Mean Corpuscular HGB Conc 33.7 g/dl (31.0-35.0); Mean Corpuscular Hemoglobin 28.1 pg (27.0-33.0); Mean Corpuscular Volume 83.5 fL (80.0-98.0); Mean Platelet Volume 10.3 fL (9.4-12.3); Monocytes Absolute Auto 0.1 X10*3/uL (0.1-1.2); Monocytes Percent Auto 2.9 % (2-11); Neutrophils Absolute Auto 3.9 x10*3/uL (2.0-8.3); Neutrophils Percent Auto 81.6 % (45-73); Platelet Count 290 X10*3/uL (160-400); Prothrombin Time 13.3 SEC (10.9-12.4); Red Blood Count 3.63 X10*6/uL (4.20-5.50); Red Cell Distribution Width 17.1 % (11.0-16.0); White Blood Count 4.8 X10*3/uL (4.8-10.8)
[2024-03-03 17:19] LABS: Influenza A PCR NEGATIVE (Negative); Influenza B PCR NEGATIVE (Negative); Resp Syncy Virus RNA Qual PCR NEGATIVE (Negative); SARS COV2 PCR INHOUSE NEGATIVE (Negative)
[2024-03-03 17:20] LABS: Alanine Aminotransferase 11 U/L (0-31); Albumin Level 3.2 g/dL (3.5-5.0); Alkaline Phosphatase 53 U/L (39-117); Anion Gap 12 (12-20); Aspartate Amino Transferase 31 U/L (5-31); Bilirubin Total 0.4 mg/dL (0.0-1.0); Blood Urea Nitrogen 6 mg/dL (9-16); C Reactive Protein 1.12 mg/dL (< or = 0.50); Calcium 8.7 mg/dL (8.4-10.2); Carbon Dioxide 25 mmol/L (22-29); Chloride 101 mmol/L (96-108); Creatinine Clr Calc Pharmacy 112.1; Estimated Glomerular Filt Rate > 60; Glucose Random 96 mg/dL (60-115); Magnesium 1.8 mg/dL (1.6-2.6); Potassium 3.7 mmol/L (3.3-5.1); Sodium 134 mmol/L (135-145); Total Protein 7.3 g/dL (6.5-8.0)
[2024-03-03 17:24] LABS: HCG Quantitative < 2 mIU/mL; Troponin-I High Sensitivity < 2.7 ng/L (<3.5-17.0)
[2024-03-03 17:41] LABS: Erythrocyte Sedimentation Rate 70 MM/HR (0-20)
--- NOTE | 2024-03-03 20:16 | PC.NURSE ---
Per registration staff, pt left.
== END 2024-03-03 20:19 | disposition left against medical advice (07) ==
PROVIDERS: Registered Nurse Emergency; Emergency Provider Emergency Medicine
DX: R07.9 Chest pain, unspecified (principal); R00.0 Tachycardia, unspecified; R53.83 Other fatigue; R11.2 Nausea with vomiting, unspecified; Z03.818 Encounter for observation for suspected exposure to other biological agents ruled out
CPT/HCPCS: 0241U; 36415; 71046; 80053; 83735; 84484; 84702; 85025; 85610; 85652; 86140; 93005; 99281; 99283

== ENCOUNTER 2025-01-11 12:18 | Outpatient (REF) | payer OTHER, SELFPAY ==
--- OUTSIDE RECORDS SUMMARY | 2025-01-11 13:08 | XMS_ITS | Encounter Summary ---
Author Organization [facility] Address [address] [place] [phone] Phone Care Team Providers Care Risk Management Consultant Name Role Phone Jeremy Dunbar MD Unavailable [phone] Josette Lewis NP Primary Care Provider [phone] Kenia Maria MD Primary Care Provider [phone] Reason for Visit * Reason Onset Date Comments PA for Anakisra (sp?) 03/02/2020 Fax # . This is the correcred fax number . Needs CHANO Encounter Details Date Type Department Care Team (Late st Contact Info) Description 03/02/2020 Telephone [facility] [address] [facility] [address] [place] [phone] Cindi Rendon MD [address] [address] [email or web address] PA for Anakisra (sp?) ( . This is the correcred fax number . Needs CHANO) Social History Tobacco Use Types Packs/Day Years Used Date Smoking Tobacco: Never Smokeless Tobacco: Never Alcohol Use Standard Drinks/Week Comments Never 0 (1 standard drink = 0.6 oz pur e alcohol) Comments Unknown Sex and Gender Information Value Date Recorded Sex Assigned at Not on file Legal Sex Female 11:45 AM EDT Gender Identity Not on file Sexual Orientation Not on file documented as of this encounter Plan of Treatment Upcoming Encounters Date Type Department Care Team (Late st Contact Info) Description 02/04/2025 11:00 AM EDT Office Visit [facility] [address] [place] [address] Ana Queen MD [address] [place] [address] [email or web address] documented as of this encounter Visit Diagnoses Not on filedocumented in this encounter Care Teams Risk Management Consultant Relationship Specialty Start Date End Date Josette Lewis NP [address] [place] [id number] PCP - General Pediatrics 02/22/20 05/04/20 Kenia Maria MD [address] [place] [phone] PCP - General Adolescent Medicine 05/05/20 Jeremy Dunbar MD [address] [place] [address] [place] [address] [email or web address] Nephrology 01/19/20 documented as of this encounter Additional Source Comments The information contained in this document represents components of the legal health record. It is not the complete legal health record.[facility]
--- OUTSIDE RECORDS SUMMARY | 2025-01-11 13:08 | XMS_ITS | Encounter Summary ---
Author Organization [facility] Address [address] [place] [address] Phone Care Team Providers Care Proof Reader Name Role Phone Kenia Maria MD Primary Care Provider [phone] Reason for Visit * Reason Comments Med Refill Encounter Details Date Type Department Care Team (Late st Contact Info) Description 11/06/2019 Refill [facility] - [address] [id number] Cristopher Nair MD Renal disease Social History Tobacco Use Types Packs/Day Years Used Date Smoking Tobacco: Never Smokeless Tobacco: Never Alcohol Use Standard Drinks/Week Comments Yes 0 (1 standard drink = 0.6 oz pur e alcohol) Hunger/Food Answer Date Recorded No 05/07/2019 Stable Housing Answer Date Recorded No 06/03/2019 Transportation Concerns Answer Date Rec orded No 05/07/2019 Hazards in Home Answer Date Recorded No 05/07/2019 Financing Utilities Answer Date Recorde d No 05/07/2019 Safety at Home Answer Date Recorded No 05/07/2019 Outside Support Answer Date Recorded No 05/07/2019 Understanding Health Concerns Answer Da te Recorded No 05/07/2019 Financing Health Concerns Answer Date R ecorded No 05/07/2019 Missing School or Work Answer Date Babak rded No 05/07/2019 Comments No Sex and Gender Information Value Date Recorded Sex Assigned at Female 09/21/2023 10:44 AM EDT Legal Sex Female 4:46 PM EDT Gender Identity Female 08/26/2020 10:21 AM EDT Sexual Orientation Straight 09/21/2023 10 :44 AM EDT documented as of this encounter Miscellaneous Notes * Telephone Encounter - Cecile Villegas MD - 11/08/2019 12:54 PM EDT Newly Dx SLE with Nephritis, managed by Nephrology * Telephone Encounter - Sven Watkins LPN - 11/08/2019 11:43 AM EDT [facility] a [facility] Prednisone 20 mg. Left message for pt's mom. Is this something pt should be taking on a regular basis? Pt of Shruthi Burnsgood. documented in this encounter Plan of Treatment Not on file documented as of this encounter Visit Diagnoses Diagnosis Renal disease Unspecified disorder of kidney and ureter documented in this encounter Care Teams Proof Reader Relationship Specialty Start Date End Date Kenia Maria MD [address] [place] [phone] PCP - General Pediatrics 03/08/20 12/08/23 Jeremy Dunbar [facility], [address], [facility] [address] Consulting Physician Nephrology 11/22/21 documented as of this encounter
--- OUTSIDE RECORDS SUMMARY | 2025-01-11 13:08 | XMS_ITS | Encounter Summary ---
Author Organization [facility] Address [address] [address] Phone Care Team Providers Care Department Store General Manager Name Role Phone Kenia Maria MD Primary Care Provider Encounter Details Date Type Department Care Team (Late st Contact Info) Description 06/24/2022 Documentation Only [facility] [address] [place] [address] Jeremy Dunbar MD [address] [place] [address] [place] [address] Social History Tobacco Use Types Packs/Day Years Used Date Smoking Tobacco: Never Comments Unknown Sex and Gender Information Value Date Recorded Sex Assigned at Not on file Legal Sex Female 1:33 PM EDT Gender Identity Not on file Sexual Orientation Not on file documented as of this encounter Plan of Treatment Upcoming Encounters Date Type Department Care Team (Late st Contact Info) Description 02/23/2025 4:15 PM EDT Office Visit [facility] [address] [place] [address] Jeremy Dunbar MD [address] [place] [address] [place] [address] documented as of this encounter Visit Diagnoses Not on filedocumented in this encounter Care Teams Department Store General Manager Relationship Specialty Start Date End Date Kenia Maria MD [address] [place] [address] [place] [address] PCP - General 09/29/24 documented as of this encounter
[2025-01-11 13:55] LABS: Hemoglobin A1C 118.8224 umol/L; Total Hemoglobin (HGBA1C) 3729.3737 umol/L
[2025-01-11 14:31] LABS: Alanine Aminotransferase 20 U/L (0-31); Albumin Level 4.4 g/dL (3.5-5.0); Alkaline Phosphatase 71 U/L (39-117); Anion Gap 16 (12-20); Aspartate Amino Transferase 27 U/L (5-31); Blood Urea Nitrogen 14 mg/dL (9-16); Calcium 9.4 mg/dL (8.4-10.2); Carbon Dioxide 26 mmol/L (22-29); Chloride 102 mmol/L (96-108); Cholesterol 184 mg/dL (<200); Estimated Glomerular Filt Rate > 60; Free T4 (Free Thyroxine) 1.04 ng/dL (0.71-1.85); HDL Cholesterol 45 mg/dL (>40); Potassium 3.7 mmol/L (3.3-5.1); Sodium 140 mmol/L (135-145); Thyroid Stimulating Hormone 0.93 uIU/mL (0.32-4.0); Total Protein 7.8 g/dL (6.5-8.0); Triglycerides 163 mg/dL (<150)
[2025-01-11 18:36] LABS: Hematocrit 40.0 % (37.0-47.0); Hemoglobin 13.8 g/dl (12.0-16.0); Mean Corpuscular HGB Conc 34.5 g/dl (31.0-35.0); Mean Corpuscular Hemoglobin 29.2 pg (27.0-33.0); Mean Corpuscular Volume 84.6 fL (80.0-98.0); NRBC Abs Auto 0.000 X10*3/uL (0.0-0.012); NRBC Pct Auto 0.0 /100WBC (0.0-0.2); Platelet Count 255 X10*3/uL (160-400); Red Blood Count 4.73 X10*6/uL (4.20-5.50); White Blood Count 8.3 X10*3/uL (4.8-10.8)
[2025-01-12 04:01] LABS: HBS Num1 109.44 mIU/mL (0-7.99); HBc Num1 0.05 S/CO (0.00-0.79); HBsAGNum1 0.39 S/CO (0.00-0.99); HIV Num 1 0.06 S/CO (0.00-0.99); Hepatitis B Surface Antigen Negative (Negative); ~HepC Num1 0.29 S/CO (0.00-0.79); ~Hepatitis B Surface Antibody REACTIVE (Nonreactive); ~Hepatitis C Antibody Nonreactive (Nonreactive)
[2025-01-14 03:54] LABS: ~Hepatitis A Antibody IgG 7.06 S/CO (0.00-0.99)
[2025-01-14 08:33] LABS: TS Negative Control Passed; TS Panel A 0; TS Panel B 0; TS Positive Control Passed; TSpotTB Negative (Negative)
[2025-01-14 10:53] LABS: Rubeola IgG (Measles) 165.00 AU/mL
== END 2025-01-11 12:19 | disposition home or self-care (01) ==
LOC: HO.HHCL 12:18
PROVIDERS: PCP Family Medicine; Visit Provider Family Medicine
DX: Z00.00 Encounter for general adult medical examination without abnormal findings (principal); J45.20 Mild intermittent asthma, uncomplicated; M32.9 Systemic lupus erythematosus, unspecified; M32.14 Glomerular disease in systemic lupus erythematosus; Z68.27 Body mass index [BMI] 27.0-27.9, adult; Z71.3 Dietary counseling and surveillance; Z71.82 Exercise counseling; Z11.4 Encounter for screening for human immunodeficiency virus [HIV]; Z11.3 Encounter for screening for infections with a predominantly sexual mode of transmission; Z11.1 Encounter for screening for respiratory tuberculosis; Z11.59 Encounter for screening for other viral diseases
CPT/HCPCS: 36415; 80048; 80061; 80076; 82306; 83036; 84439; 84443; 85027; 86481; 86592; 86695; 86696; 86704; 86706; 86708; 86735; 86762; 86765; 86787; 86803; 87340; 87389